=== PATIENT | female | born 1955 | race Caucasian/White ===

== ENCOUNTER → 2018-02-25 08:30 | Outpatient (CLI) | payer OTHER, SELFPAY ==
--- NOTE | 2018-02-25 | DI.MG.S_ITS ---
BILATERAL DIGITAL SCREENING MAMMOGRAM 3D/2D WITH CAD: 02/25/2018 CLINICAL: Family history of breast cancer. Comparison is made to exams dated: 01/29/2017 mammogram, 04/07/2014 mammogram, and 01/15/2011 mammogram - [facility]. There are scattered fibroglandular elements in both breasts. Current study was also evaluated with a Computer Aided Detection (CAD) system. There are 1 cm grouped heterogeneous calcifications in the right breast middle depth lateral region seen best on the craniocaudal view. These are more prominent than on prior exams, possibly due to differences in technique (traditional 2D mammography versus current C-View mammography). No other significant masses, calcifications, or other findings are seen in either breast. IMPRESSION: INCOMPLETE: NEEDS ADDITIONAL IMAGING EVALUATION The 1 cm grouped heterogeneous calcifications in the right breast are indeterminate. Additional views with possible ultrasound are recommended. This exam was interpreted at Station ID: [id number]. NOTE: For mammograms, a report in lay terms will be sent to the patient. Approximately 15% of breast malignancies will not be visualized mammographically. In the management of a palpable breast mass, a negative mammogram must not discourage biopsy of a clinically suspicious lesion. Electronically Signed By: Aakash Mendoza M.D. ecl/:02/25/2018 09:59:26 letter sent: Additional Imaging Needed ACR BI-RADS Category 0: Incomplete [id number]
== END ==
PROVIDERS: PCP Family Medicine; Visit Provider Family Medicine
DX: Z12.31 Encounter for screening mammogram for malignant neoplasm of breast (principal); R92.8 Other abnormal and inconclusive findings on diagnostic imaging of breast
CPT/HCPCS: 77063; 77067

== ENCOUNTER → 2018-03-24 12:26 | Outpatient (CLI) | payer OTHER, SELFPAY ==
--- NOTE | 2018-03-24 | DI.MG.S_ITS ---
UNILATERAL RIGHT DIGITAL DIAGNOSTIC MAMMOGRAM 3D/2D WITH ADDITIONAL VIEWS: 03/24/2018 CLINICAL: Additional evaluation requested from prior study. Comparison is made to exams dated: 02/25/2018 mammogram, 01/29/2017 mammogram, and 04/07/2014 mammogram - [facility]. There are scattered fibroglandular elements in right breast. Previously identified heterogenous calcifications seen on comparison screening mammograms in the lateral right breast persist with additional views, are best seen on the CC view, and extend from central to the nipple at anterior depth laterally to posterior depth, measuring up to 8 cm in anteroposterior diameter. The calcifications are punctate and diffuse. No other significant masses, calcifications, or other findings are seen in the breast. IMPRESSION: PROBABLY BENIGN Diffuse punctate and heterogenous calcifications extending from central to the nipple to the lateral right breast are probably benign, and a follow-up mammogram in 6 months is recommended to demonstrate stability. Patient is advised to return sooner for re-evaluation should she feel anything grow or change. This exam was interpreted at Station ID: [id number]. NOTE: For mammograms, a report in lay terms will be sent to the patient. Approximately 15% of breast malignancies will not be visualized mammographically. In the management of a palpable breast mass, a negative mammogram must not discourage biopsy of a clinically suspicious lesion. Electronically Signed By: Aakash Mendoza M.D. ecl/:03/24/2018 13:46:54 letter sent: Followup Recommended ACR BI-RADS Category 3: Probably benign [id number]
== END ==
PROVIDERS: PCP Family Medicine; Visit Provider Family Medicine
DX: R92.1 Mammographic calcification found on diagnostic imaging of breast (principal)
CPT/HCPCS: 77065; G0279

== ENCOUNTER 2018-09-10 14:42 | Emergency (ER) | payer OTHER, SELFPAY ==
[2018-09-10 14:50] VITALS: BP 181/83; PULSE 78; RESP 17; TEMP 36.9; O2SAT 99
--- NOTE | 2018-09-10 15:06 | DI.CT.S_ITS ---
PROCEDURE: CT HEAD/BRAIN WO CON INDICATIONS: waxing / waning confusion / altered mental status. TECHNIQUE: Noncontrast 4.5 mm thick angled axial sections acquired from the foramen magnum to the vertex, with coronal and sagittal reformats. For radiation dose reduction, the following was used: automated exposure control, adjustment of mA and/or kV according to patient size. COMPARISON: None. FINDINGS: Image quality: Excellent. CSF spaces: Basal cisterns are patent. No extra-axial fluid collections. The ventricles are symmetric in size and shape. Brain: No intracranial bleeds or masses. There is cerebral volume loss for age, with resultant ventricular and sulcal prominence. There are periventricular and deep white matter chronic small vessel ischemic changes. There is intracranial internal carotid artery atherosclerosis. Skull and face: Calvarium and visualized facial bones appear intact, without suspicious lesions. Sinuses: Visualized sinuses and mastoids are clear. IMPRESSION: No acute intracranial abnormality. Dictated by: Mark Esquivel M.D. on 09/10/2018 at 15:34 Approved by: Mark Esquivel M.D. on 09/10/2018 at 15:34
[2018-09-10 15:30] VITALS: BP 135/74; PULSE 68; RESP 16; O2SAT 98
[2018-09-10 15:39] LABS: Add Manual Diff / Slide Review NO; Basophils Absolute Auto 100 /uL (0-100); Eosinophils Absolute Auto 300 /uL (0-450); Eosinophils Percent Auto 2.5 % (2-4); Hematocrit 34.1 % (36-46); Hemoglobin 11.3 g/dL (12.0-16.0); Lymphocytes Absolute Auto 3100 /uL (1100-4500); Lymphocytes Percent Auto 26.8 % (25-40); Mean Corpuscular HGB Conc 33.1 % (30-36); Mean Corpuscular Hemoglobin 27.5 PG (26-34); Mean Corpuscular Volume 83.1 fL (80-100); Monocytes Absolute Auto 700 /uL (0-900); Monocytes Percent Auto 5.9 % (3-14); Neutrophils Absolute Auto 7400 /uL (1500-7000); Neutrophils Percent Auto 63.8 % (50-75); Platelet Count 387 X10^3/uL (150-400); Red Cell Distribution Width 14.7 % (11.6-14.8); White Blood Cell Count 11.6 X10^3/uL (4.5-11.0)
[2018-09-10 15:46] LABS: INR 0.9 (0.9-1.3); Prothrombin Time 10.4 SECONDS (10.1-12.7)
[2018-09-10 15:49] LABS: PTT Partial Thromboplastin Tim 31 SECONDS (26.4-36.2)
[2018-09-10 15:53] LABS: BUN Creatinine Ratio 17.8 (6-22); Blood Urea Nitrogen 16 mg/dL (7-17); Calcium 10.4 mg/dL (8.4-10.2); Carbon Dioxide 29 mmol/L (22-32); Chloride 96 mmol/L (98-107); Estimated Glomerular Filt Rate > 60.0 mL/min (>60); Glucose 135 mg/dL (80-110); HEMOLYSIS < 15 (0-50); Potassium 3.2 mmol/L (3.4-5.1); Sodium 139 mmol/L (137-145)
[2018-09-10 16:30] VITALS: BP 133/64; PULSE 69; RESP 16; O2SAT 98
[2018-09-10 16:45] LABS: Urine Amphetamines Negative (Negative); Urine Barbiturates Negative (Negative); Urine Benzodiazepines Negative (Negative); Urine Cocaine Negative (Negative); Urine MDMA Negative (Negative); Urine Methadone Negative (Negative); Urine Methamphetamines Negative (Negative); Urine Morphine/Opi cutoff 2000 Negative (Negative); Urine Oxycodone Negative (Negative); Urine Phencyclidine Negative (Negative); Urine Tetrahydrocannabinol Negative (Negative); Urine Tricyclic Antidepressant Negative (Negative)
--- NOTE | 2018-09-10 17:18 | ED.NEUROSD ---
HPI - Neuro Symptoms/Deficit General Chief Complaint: Neuro Symptoms/Deficit Stated Complaint: Headache since last night, high bp, brain fog Time Seen by Provider: 09/10/18 16:48 Source: patient and family ( ) Mode of arrival: ambulatory Limitations: no limitations History of Present Illness HPI Narrative: this is a 63-year-old female comes to the emergency department with complaint of altered mental status. Patient states that she had a brain fog. She states she started have a little bit of a headache last night which he states was no big deal. About 10:00 a.m. 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 About a 0.5 hr into spending time in a classroom she realized that was not the location she was supposed to be either even after looking at her schedule sober times she did not recognize that she was in the wrong place. She states that she felt sort of weird little bit dizzy. She texted her to let him know that she felt dizzy and sort of confused. He asked if she wanted him to come get her and she did not. She checked her blood sugar lunch and was normal. She was later working with students and reading questions on a paper she felt that she had no problem reading the questions but when it came time to answer questions about them she did feel like she could answer them properly, she states that this did not answer them and she verbalized their answering them correctly but she felt she could not have reached the conclusion. She denies any vision changes, she denies any chest pain, no shortness of breath no nausea no vomiting no diarrhea or constipation. She has not had any urinary symptoms. She has not had similar symptoms in the past. Patient has not had any numbness, weakness tingling or other lateralizing symptoms. She has not noticed she has had difficulties with speech and no one around her has noticed this. Her states she is acting normally at this time. She is on metformin for diabetes, she takes medication for hypertension as well as mood disorder. She denies any tobacco, alcohol or illicit On Anticoagulants: No (basa) Related Data Home Medications Medication Instructions Recorded Confirmed Cinnamon 1 cap PO QAM 09/10/18 09/10/18 amlodipine 10 mg PO DAILY 09/10/18 09/10/18 aspirin 81 mg PO QPM 09/10/18 09/10/18 citalopram 40 mg PO QPM 09/10/18 09/10/18 levothyroxine 100 mcg PO QAM 09/10/18 09/10/18 metformin 1,000 mg PO BID 09/10/18 09/10/18 metoprolol tartrate 50 mg PO BID 09/10/18 09/10/18 multivitamin 1 tab PO QPM 09/10/18 09/10/18 omeprazole 20 mg PO QPM 09/10/18 09/10/18 triamterene-hydrochlorothiazid 2 cap PO DAILY 09/10/18 09/10/18 venlafaxine 150 mg PO QPM 09/10/18 09/10/18 Allergies Allergy/AdvReac Type Severity Reaction Status Date / Time Sulfa (Sulfonamide Allergy Severe Vomiting, Verified 09/10/18 18:02 Antibiotics) Rash, [SULFA (SULFONAMIDE Pruritus, ANTIBIOTICS)] Fever povidone-iodine AdvReac Mild Contact Verified 09/10/18 18:02 [From Betadine] allergy, Swelling soap [From Betadine] AdvReac Mild Contact Verified 09/10/18 18:02 allergy, Swelling Review of Systems Review of Systems ROS Unobtainable: All systems reviewed & are unremarkable except as noted in HPI and below Constitutional Denies body ache(s), Denies chills, Denies fatigue, Denies fever(s), Denies frequent falls, Reports headache(s), Denies lethargy, Denies malaise and Denies weakness Eyes Denies blurry vision, Denies change in vision and Denies loss of vision ENT Ears, Nose, Mouth, and Throat: Denies abnormal hearing, Reports dizziness, Reports headache(s) and Denies nasal congestion Cardiovascular Denies chest pain, Denies diaphoresis, Denies syncope, Denies rapid heart rate, Denies edema, Denies irregular heart rhythm, Denies lightheadedness, Denies palpitations, Denies dyspnea, Denies dyspnea on exertion and Denies orthopnea Respiratory Denies change in phlegm color, Denies chest congestion, Denies cough, Denies dyspnea, Denies dyspnea on exertion and Denies wheezing Gastrointestinal Gastrointestinal: Denies abdominal pain, Denies change in bowel habits, Denies diarrhea, Denies nausea and Denies vomiting Genitourinary Denies hematuria, Denies dysuria, Denies flank pain, Denies urinary incontinence, Denies urinary hesitancy and Denies urinary urgency Musculoskeletal Denies abnormal gait, Denies muscle weakness, Denies numbness and Denies tingling Integumentary/Breasts Denies rash Neurologic Denies abnormal hearing, Denies abnormal movements, Denies abnormal speech, Denies abnormal gait, Denies behavioral changes, Reports confusion, Reports dizziness, Denies syncope, Denies frequent falls, Reports headache(s), Denies lack of coordination, Denies focal weakness, Denies loss of vision, Denies numbness, Denies sensory deficit, Denies tingling and Denies weakness Psychiatric Denies behavioral changes and Reports confusion Endocrine Denies fatigue and Denies palpitations Allergic/Immunologic Denies wheezing PFSH Medical History Diabetes (Chronic) Hypertension (Chronic) Mood disorder (Chronic) Surgical History Hx of cholecystectomy (Chronic) Social History marital status: household members: spouse lives independently: Yes occupational status: employed Smoking Status: Never smoker alcohol intake: never substance use type: does not use Social History marital status: household members: spouse lives independently: Yes occupational status: employed Smoking Status: Never smoker alcohol intake: never substance use type: does not use Exam Narrative Exam Narrative: GEN: well nourished, well appearing [ female], alert and oriented x 3, patient appears to be in no acute distress. HEENT: Atraumatic, pupils are equal round reactive to light, extraocular movements are intact, nares are clear, TMs are clear with no fluid, there is no conjunctival pallor. Throat is clear without any exudates, erythema, tonsillar enlargement or uvular deviation, no facial droop HEART: Regular rate and rhythm without murmur, clicks, rubs. No carotid bruits, pulses are equal in upper and lower extremities LUNGS:Lungs clear to auscultation, no wheezes, rales, crackles, chest moves symmetrically ABD:bowel sounds normal, soft, non-tender, no guarding, rebound, rigidity, no masses noted, no hepatosplenomegaly :No CVA tenderness MSCL: Non-tender, no muscle atrophy, muscles strength 5/5 upper and lower extremities, full range of motion, normal gait NEURO:CN 2-12 intact, sensation normal, reflexes 2/4 upper and lower extremities. finger nose finger test normal, heel sabillon test normal Initial Vital Signs Initial Vital Signs: Vital Signs Temperature 98.4 F 09/10/18 14:50 Pulse Rate 78 09/10/18 14:50 Respiratory Rate 17 09/10/18 14:50 Blood Pressure 181/83 H 09/10/18 14:50 Pulse Oximetry 99 09/10/18 14:50 Scores NIH Stroke Scale Level of Conciousness: Alert, keenly responsive Ask month/age: Answers both questions correctly. Open/close eyes, close hand: Performs both tasks correctly Best gaze horizontal: Normal Visual woo: No visual loss Facial palsy: Normal symetrical movement Left arm drift: No drift for full 10 sec Right arm drift: No drift for full 10 sec Left leg drift: No drift for full 10 sec Right leg drift: No drift for full 10 sec Limb ataxia: Absent Sensory on face/arms/legs: Normal, no sensory loss Best language: No aphasia, normal Dysarthria: Normal Extinction or inattention: No abnormality Total NIH Stroke scale score: 0 Course Orders Ordered: ED Orders 09/10/18 15:06 CT head/brain wo con Stat EKG-12 Lead Stat 09/10/18 15:30 Basic Metabolic Panel Stat Complete Blood Count AUTO DIFF Stat Partial Thromboplastin Time Stat Prothrombin Time INR Stat 09/10/18 16:35 Urine Drug Screen, Rapid Stat Discontinued Medications Aspirin (Aspirin Chew) 324 mg PO NOW ONE Stop: 09/10/18 17:58 Last Admin: 09/10/18 18:30 Dose: 324 mg Potassium Chloride (Potassium Chloride) 40 meq PO NOW ONE Stop: 09/10/18 17:22 Last Admin: 09/10/18 17:50 Dose: 40 meq Vital Signs - 8 hr 09/10/18 14:50 09/10/18 15:30 09/10/18 16:30 Temperature 98.4 F Pulse Rate 78 68 69 Respiratory Rate 17 16 16 Blood Pressure 181/83 H Blood Pressure [Left Arm] 135/74 133/64 Pulse Oximetry 99 98 98 09/10/18 18:16 09/10/18 18:55 Temperature 98.3 F Pulse Rate 61 69 Respiratory Rate 13 19 Blood Pressure Blood Pressure [Left Arm] 143/66 H 150/80 H Pulse Oximetry 97 96 MDM - Neuro Symptoms/Deficit Lab Data Attestation: I reviewed the patient's lab results. Result diagrams: 09/10/18 15:30 09/10/18 15:30 Lab Results 09/10/18 09/10/18 09/10/18 Range/Units 15:30 15:30 15:30 WBC 11.6 H (4.5-11.0) X10^3/uL RBC 4.10 (4.0-5.2) X10^6/uL Hgb 11.3 L (12.0-16.0) g/dL Hct 34.1 L (36-46) % MCV 83.1 (80-100) fL MCH 27.5 (26-34) PG MCHC 33.1 (30-36) % RDW 14.7 (11.6-14.8) % Plt Count 387 (150-400) X10^3/uL Neut % (Auto) 63.8 (50-75) % Lymph % (Auto) 26.8 (25-40) % [place] % (Auto) 5.9 (3-14) % Eos % (Auto) 2.5 (2-4) % Baso % (Auto) 1.0 (0-2) % Neut # (Auto) 7400 H (8838-2579) /uL Lymph # (Auto) 3100 (1776-4042) /uL [place] # (Auto) 700 (0-900) /uL Eos # (Auto) 300 (0-450) /uL Baso # (Auto) 100 (0-100) /uL PT 10.4 (10.1-12.7) SECONDS INR 0.9 (0.9-1.3) APTT 31 (26.4-36.2) SECONDS Sodium 139 (137-145) mmol/L Potassium 3.2 L (3.4-5.1) mmol/L Chloride 96 L (98-107) mmol/L Carbon Dioxide 29 (22-32) mmol/L BUN 16 (7-17) mg/dL Creatinine 0.90 (0.52-1.04) mg/dL Estimated GFR > 60.0 (>60) mL/min BUN/Creatinine Ratio 17.8 (6-22) Glucose 135 H (80-110) mg/dL Calcium 10.4 H (8.4-10.2) mg/dL Urine Opiates Screen (Negative) Ur Oxycodone Screen (Negative) Urine Methadone Screen (Negative) Ur Barbiturates Screen (Negative) U Tricyclic Antidepress (Negative) Ur Phencyclidine Scrn (Negative) Ur Amphetamines Screen (Negative) U Methamphetamines Scrn (Negative) Ur MDMA Scrn (Ecstasy) (Negative) U Benzodiazepines Scrn (Negative) Urine Cocaine Screen (Negative) U Marijuana (THC) Screen (Negative) 09/10/18 Range/Units 16:35 WBC (4.5-11.0) X10^3/uL RBC (4.0-5.2) X10^6/uL Hgb (12.0-16.0) g/dL Hct (36-46) % MCV (80-100) fL MCH (26-34) PG MCHC (30-36) % RDW (11.6-14.8) % Plt Count (150-400) X10^3/uL Neut % (Auto) (50-75) % Lymph % (Auto) (25-40) % [place] % (Auto) (3-14) % Eos % (Auto) (2-4) % Baso % (Auto) (0-2) % Neut # (Auto) (6688-3105) /uL Lymph # (Auto) (1480-4730) /uL [place] # (Auto) (0-900) /uL Eos # (Auto) (0-450) /uL Baso # (Auto) (0-100) /uL PT (10.1-12.7) SECONDS INR (0.9-1.3) APTT (26.4-36.2) SECONDS Sodium (137-145) mmol/L Potassium (3.4-5.1) mmol/L Chloride (98-107) mmol/L Carbon Dioxide (22-32) mmol/L BUN (7-17) mg/dL Creatinine (0.52-1.04) mg/dL Estimated GFR (>60) mL/min BUN/Creatinine Ratio (6-22) Glucose (80-110) mg/dL Calcium (8.4-10.2) mg/dL Urine Opiates Screen Negative (Negative) Ur Oxycodone Screen Negative (Negative) Urine Methadone Screen Negative (Negative) Ur Barbiturates Screen Negative (Negative) U Tricyclic Antidepress Negative (Negative) Ur Phencyclidine Scrn Negative (Negative) Ur Amphetamines Screen Negative (Negative) U Methamphetamines Scrn Negative (Negative) Ur MDMA Scrn (Ecstasy) Negative (Negative) U Benzodiazepines Scrn Negative (Negative) Urine Cocaine Screen Negative (Negative) U Marijuana (THC) Screen Negative (Negative) Urine Dip Bedside Urine Glucose Negative Bedside Urine Bilirubin - Negative Bedside Urine Ketone - Negative Urine Specific [place] 1.015 Bedside Urine Occult Blood - Negative Bedside Urine pH 6.0 Bedside Urine Protein - Negative Bedside Urine Urobilinogen - Negative Bedside Urine Nitrite - Negative Bedside Urine Leukocytes + [address] scan - head: Radiologist's impression: Sandy Clark 63 F [address] [place] [address] CT Scan Report Signed Patient: Sandy Clark GMR#: [id number] : 5Acct:[id number] Age/Sex: 63 / FDate of Service: 09/10/18 Loc: ED Accession Number: [id number] Procedure: CT head/brain wo con Ordering Provider: Tori Nicholas D.O. PROCEDURE: CT HEAD/BRAIN WO CON INDICATIONS: waxing / waning confusion / altered mental status. TECHNIQUE: Noncontrast 4.5 mm thick angled axial sections acquired from the foramen magnum to the vertex, with coronal and sagittal reformats. For radiation dose reduction, the following was used: automated exposure control, adjustment of mA and/or kV according to patient size. COMPARISON: None. FINDINGS: Image quality: Excellent. CSF spaces: Basal cisterns are patent. No extra-axial fluid collections. The ventricles are symmetric in size and shape. Brain: No intracranial bleeds or masses. There is cerebral volume loss for age, with resultant ventricular and sulcal prominence. There are periventricular and deep white matter chronic small vessel ischemic changes. There is intracranial internal carotid artery atherosclerosis. Skull and face: Calvarium and visualized facial bones appear intact, without suspicious lesions. Sinuses: Visualized sinuses and mastoids are clear. IMPRESSION: No acute intracranial abnormality. Dictated by: Mark Esquivel M.D. on 09/10/2018 at 15:34 Approved by: Mark Esquivel M.D. on 09/10/2018 at 15:34 ECG Data Attestation: I personally reviewed and interpreted this ECG as follows: Interpretation: sinus rhythm with occasional PVCs, rate of 65 P are 176 QRS of 110 and QTC of 445. nonspecific T-wave change. MDM Narrative Medical decision making narrative: Patient had to have an acute alteration in her mental status that sort of wax and wane and has resolved since. Patient's NIH is 0, her symptoms are not to atypical TIA. Patient does have risk factors. Discussed with her primary care doctor nelida. Patient is reluctant to be admitted for observation and was offered to follow up on Thursday but continue an aspirin [address] Zavala is on-call weekend and states that if she has any recurrent symptoms to contact him immediately and they could directly admit her. Patient is comfortable with this plan we did discuss if she has any major changes such as facial droop, new weakness difficulty with movement or other alterations in her mental status would likely be appropriate for her to come directly to the ER 1st. She does have a slight decrease in her potassium although this seems unlikely to be the cause of her symptomatology. Urine shows leukocyte esterase but no nitrates so unlikely to be UTI causing altered mental status. Discharge Plan Departure Patient Disposition: Home Clinical Impression: Acute alteration in mental status, Acute hypokalemia Discharge Date/Time: 09/10/18 19:06 Interventions: ED Discharge Assessment Last Done: 09/10/18 18:56 Instructions: DI for Altered Mental Status Activity Restrictions/Additional Instructions: Follow-up with Dr. Zavala on Thursday, call for an appointment. Dr. Zavala is on-call this if you are having symptoms like he had at work today called Dr. Zavala. Continue home medications as prescribed. Take an aspirin at 324 mg once daily, Until cleared by Dr. Zavala. Return to the emergency department for fevers greater than 100.4, sudden severe headaches, new vision changes new weakness, numbness, inability to lift or move her extremity, new chest pain or shortness of breath, difficulty with speech or other new or concerning symptoms. Prescriptions: No Action metformin 500 mg tablet 1,000 mg PO BID RF: 0 venlafaxine 150 mg capsule,extended release 24hr 150 mg PO QPM RF: 0 triamterene-hydrochlorothiazid 37.5-25 mg capsule 2 cap PO DAILY RF: 0 levothyroxine 100 mcg tablet 100 mcg PO QAM RF: 0 citalopram 20 mg tablet 40 mg PO QPM RF: 0 amlodipine 10 mg tablet 10 mg PO DAILY RF: 0 metoprolol tartrate 50 mg tablet 50 mg PO BID RF: 0 omeprazole 20 mg capsule,delayed release(DR/EC) 20 mg PO QPM RF: 0 multivitamin Tablet 1 tab PO QPM RF: 0 aspirin 81 mg Tablet,Delayed Release (Dr/Ec) 81 mg PO QPM RF: 0 Cinnamon 1 cap PO QAM RF: 0 Referrals: Uli Zavala MD [Primary Care Provider] -
[2018-09-10] MEDS: POTASSIUM CHLORIDE 20 MEQ/15 ML UDC 40 MEQ PO (17:50)
[2018-09-10 18:16] VITALS: BP 143/66; PULSE 61; RESP 13; O2SAT 97
[2018-09-10] MEDS: ASPIRIN 81 MG TAB 324 MG PO (18:30)
[2018-09-10 18:55] VITALS: BP 150/80; PULSE 69; RESP 19; TEMP 36.8; O2SAT 96
== END 2018-09-10 19:06 | disposition home or self-care (01) ==
PROVIDERS: Emergency Provider Emergency Medicine; PCP Family Medicine
DX: R41.82 Altered mental status, unspecified (principal); E87.6 Hypokalemia
CPT/HCPCS: 36591; 70450; 80048; 80305; 81003; 85025; 85610; 85730; 93005; 99283; 99285

== ENCOUNTER 2020-09-27 17:40 | Emergency (ER) | payer MEDICARE, OTHER, SELFPAY ==
[2020-09-27 17:49] VITALS: BP 169/81; PULSE 73; RESP 14; TEMP 36.6; O2SAT 98; BMI 40.2
--- NOTE | 2020-09-27 18:31 | ED_ITS ---
HPI - General Adult General Chief complaint: Diabetic Problem Stated complaint: very low blood sugar Time Seen by Provider: 09/27/20 18:13 Source: patient Mode of arrival: Wheelchair Limitations: no limitations History of Present Illness HPI narrative: This is a 65-year-old female comes emergency department with concern for hypoglycemia. Patient states she was at home today, she had skipped her normal 2:30 p.m. snack. She went for a walk with her which is a somewhat new activity. She got home was sitting on the couch and started feeling quite shaky, she was little bit confused. and the patient checked her sugar and it was 49. He gave her a large 16 oz sweet tea. They contacted the nurse help line and were recommended to call 911. Patient was improving they elected to drive here. Patient was improved in felt like she was really back to normal on arrival here at the hospital. Her glucose here was 79. She states she continues to feel much better. Patient was started on glipizide extended release yesterday by her primary care physician because her hemoglobin A1c was 8. She states she has recently improved her diet because she had seen her blood results prior to her office visit so she has also been eating healthier than she was prior. She takes metformin as well for her diabetic medications. Patient denies any other issues today. No fevers, no cold cough or congestion. No chest pain or shortness of breath. Denies any nausea, no vomiting no other GI or urinary symptoms. She denies any frequency dysuria sense of urgency. She is accompanied by her . Related Data Home Medications Medication Instructions Recorded Confirmed Cinnamon 1 cap PO QAM 09/10/18 09/14/19 amlodipine 10 mg PO DAILY 09/10/18 09/14/19 citalopram 40 mg PO QPM 09/10/18 09/14/19 levothyroxine 100 mcg PO QAM 09/10/18 09/14/19 metformin 1,000 mg PO BID 09/10/18 04/11/20 metoprolol tartrate 50 mg PO BID 09/10/18 04/11/20 multivitamin 1 tab PO QPM 09/10/18 04/11/20 omeprazole 20 mg PO QPM 09/10/18 04/11/20 triamterene-hydrochlorothiazid 2 cap PO DAILY 09/10/18 04/11/20 venlafaxine 150 mg PO QPM 09/10/18 04/11/20 Respironics Dreamstation BIPAP #1 ea 09/14/18 04/11/20 aspirin 325 mg tablet 325 mg PO DAILY 09/14/18 09/14/19 Allergies Allergy/AdvReac Type Severity Reaction Status Date / Time Sulfa (Sulfonamide Allergy Severe Vomiting, Verified 09/27/20 17:49 Antibiotics) Rash, [SULFA (SULFONAMIDE Pruritus, ANTIBIOTICS)] Fever povidone-iodine AdvReac Mild Contact Verified 09/27/20 17:49 [From Betadine] allergy, Swelling soap [From Betadine] AdvReac Mild Contact Verified 09/27/20 17:49 allergy, Swelling Review of Systems Review of Systems ROS Unobtainable: All systems reviewed & are unremarkable except as noted in HPI and below Patient History Medical History Diabetes Excessive daytime sleepiness Hypertension Insomnia Mood disorder Morbid obesity with body mass index of 40.0-49.9 Obstructive sleep apnea of adult Snoring Surgical History Hx of cholecystectomy Social History marital status: details: mitchell Khan, lives in [place] household members: spouse lives independently: Yes caregiver/support person: No housing: house occupational status: employed Smoking Status: Never smoker alcohol intake: never substance use type: does not use Smoking Status: Never smoker alcohol intake frequency: holidays/special occasions only Substance Use Type: does not use Exam Narrative Exam Narrative: GENERAL: Alert and oriented x three, well-nourished female in mild distress. Patient is eating a snack currently. HEENT: Head normocephalic, atraumatic, EOMI, pupils reactive, face symmetric, moist mucous membranes NECK: Supple, full range of motion CARDIOVASCULAR: Regular rate and rhythm without murmurs, rubs or gallops. RESPIRATORY: Breath sounds equal bilaterally, no wheezes rales or rhonchi. ABDOMEN: Soft, nontender. Normoactive bowel sounds all 4 quadrants. No guarding or rebound, rigidity, no mass : No CVA tenderness EXTREMITIES: Normal range of motion, no clubbing or edema. Neurovascularly intact NEUROLOGICAL: Cranial nerves II through XII grossly intact. Moving all extremities SKIN: Warm, dry, no petechiae, no rashes or lesions. Initial Vital Signs Initial Vital Signs: Vital Signs Temperature 97.9 F 09/27/20 17:49 Pulse Rate 73 09/27/20 17:49 Respiratory Rate 14 09/27/20 17:49 Blood Pressure 169/81 H 09/27/20 17:49 Pulse Oximetry 98 09/27/20 17:49 Scores GCS Jackie coma scale eye opening: Spontaneous Jackie coma scale verbal response: Orientated Jackie coma scale motor response: Obey commands Jackie coma scale total score: 15 Course Vital Signs Vital signs: Vital Signs - 8 hr 09/27/20 19:04 Pulse Rate 70 Respiratory Rate 18 Blood Pressure 136/65 Pulse Oximetry 96 Medical Decision Making Lab Data Labs: Point of Care Testing Glucose POC 114 Point of care testing: Point of Care Testing Glucose POC 114 MDM Narrative Medical decision making narrative: This is a 65-year-old female with hypoglycemia after starting a 2nd anti diabetic medication. Likely this in conjunction with missing her regular afternoon snack, physical activity as well as recently improving her diet cause her to have a episode. Patient defers any labs or further evaluation at this time. She is feeling much better. Repeat glucose was performed and hour after arrival and is 114. Patient politely defers additional workup including labs or urine. She was encouraged to contact her pcp before taking her new medication in the morning. They may wish to adjust doses. Discharge Plan Departure Patient Disposition: Home Clinical Impression: Hypoglycemia Instructions: DI for Hypoglycemia Activity Restrictions/Additional Instructions: Call to follow up with your physician tomorrow. Discuss with your physician or other office staff if you should continue glipizide extended release or adjust the dosage of her medication. Please return to the emergency department for fevers, recurrent episodes of hypoglycemia, lightheadedness, altered mental status, passing out, new chest pain, shortness of breath, persistent nausea vomiting, diaphoresis or sweating, diarrhea or other new or concerning symptoms. Prescriptions: No Action metformin 500 mg tablet 1,000 mg PO BID RF: 0 venlafaxine 150 mg capsule,extended release 24hr 150 mg PO QPM RF: 0 triamterene-hydrochlorothiazid 37.5-25 mg capsule 2 cap PO DAILY RF: 0 levothyroxine 100 mcg tablet 100 mcg PO QAM RF: 0 citalopram 20 mg tablet 40 mg PO QPM RF: 0 amlodipine 10 mg tablet 10 mg PO DAILY RF: 0 metoprolol tartrate 50 mg tablet 50 mg PO BID RF: 0 omeprazole 20 mg capsule,delayed release(DR/EC) 20 mg PO QPM RF: 0 multivitamin Tablet 1 tab PO QPM RF: 0 Cinnamon 1 cap PO QAM RF: 0 aspirin 325 mg tablet 325 mg PO DAILY RF: 0 (DME) RespirKyields Dreamstation BIPAP Qty: 1 RF: 0 Referrals: Dean Caro MD [Physician] -
[2020-09-27 19:04] VITALS: BP 136/65; PULSE 70; RESP 18; O2SAT 96
== END 2020-09-27 19:07 | disposition home or self-care (01) ==
PROVIDERS: Emergency Provider Emergency Medicine
DX: E16.2 Hypoglycemia, unspecified (principal)
CPT/HCPCS: 82962; 99281; 99283

== ENCOUNTER → 2021-01-22 10:27 | Outpatient (CLI) | payer MEDICARE, OTHER, SELFPAY ==
--- NOTE | 2021-01-22 | DI.RAD.S_ITS ---
PROCEDURE: XR DEXA AXIAL SKELETON INDICATIONS: Asymptomatic menopausal state COMPARISON: None. FINDINGS: This blank DEXA report has been sent in error by the PACS system. The correct and complete report will be forthcoming in 1-2 days. Thank you for your patience and understanding. Dictated by: Leanna Ohara MD, PhD on 01/22/2021 at 12:18 Approved by: Leanna Ohara MD, PhD on 01/22/2021 at 12:18
== END ==
PROVIDERS: PCP Family Medicine; Referring Provider Family Medicine; Visit Provider Family Medicine
DX: M85.851 Other specified disorders of bone density and structure, right thigh (principal); Z78.0 Asymptomatic menopausal state; E11.9 Type 2 diabetes mellitus without complications
CPT/HCPCS: 77080

== ENCOUNTER → 2021-03-07 11:17 | Outpatient (CLI) | payer MEDICARE, OTHER, SELFPAY ==
--- NOTE | 2021-03-07 | DI.MG.S_ITS ---
BILATERAL DIGITAL SCREENING MAMMOGRAM 3D/2D WITH CAD: 03/07/2021 CLINICAL: Routine screening. Family history of breast cancer. Comparison is made to exams dated: 03/24/2018 mammogram, 02/25/2018 mammogram, and 01/29/2017 mammogram - [facility]. There are scattered fibroglandular elements in both breasts. Current study was also evaluated with a Computer Aided Detection (CAD) system. There is an oval equal density focal asymmetry with an indistinct margin in the right breast central to the nipple in the retroareolar region. No other significant masses, calcifications, or other findings are seen in either breast. IMPRESSION: INCOMPLETE: NEEDS ADDITIONAL IMAGING EVALUATION The oval equal density focal asymmetry in the right breast is indeterminate. Mediolateral and spot compression views as well as additional views with possible ultrasound are recommended. This exam was interpreted at Station ID: [id number]. NOTE: For mammograms, a report in lay terms will be sent to the patient. Approximately 15% of breast malignancies will not be visualized mammographically. In the management of a palpable breast mass, a negative mammogram must not discourage biopsy of a clinically suspicious lesion. Electronically Signed By: Kelechi castellon/claudette:03/07/2021 12:32:05 letter sent: Additional Imaging Needed ACR BI-RADS Category 0: Incomplete [id number]
== END ==
PROVIDERS: PCP Family Medicine; Referring Provider Family Medicine; Visit Provider Family Medicine
DX: Z12.31 Encounter for screening mammogram for malignant neoplasm of breast (principal); Z80.3 Family history of malignant neoplasm of breast
CPT/HCPCS: 77063; 77067

== ENCOUNTER → 2021-03-26 13:30 | Outpatient (CLI) | payer MEDICARE, OTHER, SELFPAY ==
--- NOTE | 2021-03-26 | DI.MG.S_ITS ---
UNILATERAL RIGHT DIGITAL DIAGNOSTIC MAMMOGRAM 3D/2D WITH ADDITIONAL VIEWS: 03/26/2021 CLINICAL: Additional evaluation requested from prior study. Comparison is made to exams dated: 03/07/2021 mammogram, 03/24/2018 mammogram, and 02/25/2018 mammogram - [facility]. There are scattered fibroglandular elements in right breast. There is a 1.6 cm oval equal density focal asymmetry with an indistinct margin in the right breast at 7 o'clock anterior depth. No other significant masses or calcifications are seen in the breast. IMPRESSION: INCOMPLETE: NEEDS ADDITIONAL IMAGING EVALUATION The 1.6 cm oval equal density focal asymmetry in the right breast is indeterminate. An ultrasound is recommended. Ultrasound will be performed immediately following the current exam. This exam was interpreted at Station ID: [id number]. NOTE: For mammograms, a report in lay terms will be sent to the patient. Approximately 15% of breast malignancies will not be visualized mammographically. In the management of a palpable breast mass, a negative mammogram must not discourage biopsy of a clinically suspicious lesion. Electronically Signed By: Kelechi Caban M.D. [email or web address]/:03/26/2021 14:07:16 ACR BI-RADS Category 0: Incomplete [id number]
--- NOTE | 2021-03-26 | DI.US.S_ITS ---
LIMITED ULTRASOUND OF RIGHT BREAST: 03/26/2021 CLINICAL: Patient returns today to evaluate a focal asymmetry in the right breast. Comparison is made to exams dated: 03/26/2021 mammogram, 03/07/2021 mammogram, 03/24/2018 mammogram, 02/25/2018 mammogram, 01/29/2017 mammogram, and 04/07/2014 mammogram - [facility]. Color flow and real-time ultrasound of the right breast 6-8 o'clock region were performed on the areas of interest. There is a benign 0.4 cm x 0.3 cm x 0.3 cm oval cyst in the right breast at 7 o'clock anterior depth 1.5 cm from the nipple. This oval cyst is anechoic with a well-defined boundary and posterior acoustic enhancement. This likely correlates with mammography findings. Color flow imaging demonstrates that there is no vascularity present. No other discrete mass identified in the area scanned. IMPRESSION: BENIGN There is no sonographic evidence of malignancy. The 0.4 cm x 0.3 cm x 0.3 cm oval cyst in the right breast is consistent with a simple cyst and is benign. A 1 year screening mammogram is recommended. This exam was interpreted at Station ID: [id number]. Electronically Signed By: Kelechi Caban M.D. [email or web address]/:03/26/2021 15:13:02 letter sent: Normal Exam Ultrasound BI-RADS: 2 Benign
== END ==
PROVIDERS: PCP Family Medicine; Referring Provider Family Medicine; Visit Provider Family Medicine
DX: R92.8 Other abnormal and inconclusive findings on diagnostic imaging of breast (principal); N60.01 Solitary cyst of right breast
CPT/HCPCS: 76642; 77065; G0279

== ENCOUNTER 2021-08-19 13:30 | Emergency (ER) | payer MEDICARE, OTHER, SELFPAY ==
[2021-08-19 13:53] VITALS: BP 139/63; PULSE 69; RESP 18; TEMP 36.6; O2SAT 97
[2021-08-19 14:41] LABS: Add Manual Diff / Slide Review NO; Basophils Absolute Auto 100 /uL (0-100); Basophils Percent Auto 0.6 % (0-2); Eosinophils Absolute Auto 500 /uL (0-450); Eosinophils Percent Auto 3.6 % (2-4); Hematocrit 38.6 % (36-46); Hemoglobin 12.4 g/dL (12.0-16.0); Lymphocytes Absolute Auto 3000 /uL (1100-4500); Lymphocytes Percent Auto 22.4 % (25-40); Mean Corpuscular HGB Conc 32.2 % (30-36); Mean Corpuscular Hemoglobin 26.6 PG (26-34); Mean Corpuscular Volume 82.5 fL (80-100); Monocytes Absolute Auto 700 /uL (0-900); Monocytes Percent Auto 5.5 % (3-14); Neutrophils Absolute Auto 9000 /uL (1500-7000); Neutrophils Percent Auto 67.9 % (50-75); Platelet Count 321 X10^3/uL (150-400); Red Blood Cell Count 4.68 X10^6/uL (4.0-5.2); Red Cell Distribution Width 15.7 % (11.6-14.8); White Blood Cell Count 13.3 X10^3/uL (4.5-11.0)
--- NOTE | 2021-08-19 14:43 | DI.CT.S_ITS ---
PROCEDURE: CT ABDOMEN PELVIS W CON INDICATIONS: LLq, LUQ pain TECHNIQUE: After the administration of intravenous contrast, axial sections acquired from the lung bases to the pubic symphysis. Coronal and sagittal reformats were performed. For radiation dose reduction, the following was used: automated exposure control, adjustment of mA and/or kV according to patient size. COMPARISON: None. FINDINGS: Image quality: Excellent. Lung bases: Unremarkable. Heart: No significant findings. ABDOMEN: Liver: Mild, diffuse fatty infiltration of the liver. Gallbladder: Surgically absent Biliary ducts: Unremarkable. Pancreas: Unremarkable. Spleen: Unremarkable. Adrenal Glands: Unremarkable. Kidneys and Ureters: Unremarkable. Stomach and Bowel: Stomach, small bowel loops, and colon are unremarkable. Mild inflammatory changes surrounding central locule of fat noted at the anti mesenteric margin of the descending colon compatible with epiploic appendagitis. Appendix is not identified, however no inflammatory changes or free fluid are noted adjacent to the cecum. Peritoneum: No abnormal intraperitoneal fluid. No free air. Ventral Wall: Small right paramedian, fat containing supraumbilical ventral hernia. Abdominal Nodes: No retroperitoneal or mesenteric adenopathy by size criteria. Vessels: Aorta and inferior vena cava are normal in size. PELVIS: Pelvic Organs: Unremarkable. Bladder: Unremarkable. Pelvic Nodes: No enlarged lymph nodes. Miscellaneous: No hernias are seen. Bones: Spine degenerative disc disease and facet arthropathy. IMPRESSION: 1. Left colon epiploic appendagitis. 2. Hepatic steatosis. 3. Right paramedian, fat containing, supraumbilical ventral hernia. Dictated by: Leanna Ohara MD, PhD on 08/19/2021 at 15:58 Approved by: Leanna Ohara MD, PhD on 08/19/2021 at 16:02
[2021-08-19 15:06] LABS: Alanine Aminotransferase 52 IU/L (<35); Albumin 4.5 g/dL (3.5-5.0); Albumin Globulin Ratio 1.3 (1.0-2.8); Alkaline Phosphatase 167 U/L (38-126); Aspartate Aminotransferase 48 IU/L (14-36); BUN Creatinine Ratio 19.1 (6-22); Bilirubin Total 0.4 mg/dL (0.2-1.3); Blood Urea Nitrogen 17 mg/dL (7-17); Calcium 10.2 mg/dL (8.4-10.2); Carbon Dioxide 29 mmol/L (22-32); Chloride 99 mmol/L (98-107); Estimated Glomerular Filt Rate > 60.0 mL/min (>60); Globulin 3.4 g/dL (1.7-4.1); Glucose 134 mg/dL (80-110); HEMOLYSIS < 15 (0-50); Lipase 118 U/L (23-300); Potassium 3.3 mmol/L (3.4-5.1); Sodium 138 mmol/L (137-145); Total Protein 7.9 g/dL (6.3-8.2)
--- NOTE | 2021-08-19 15:18 | ED_ITS ---
HPI - Abdominal Pain <Farzaneh Mayberry PA-C - Last Filed: 08/19/21 20:51> General Chief Complaint: Abdominal Pain Stated Complaint: Left side abd pain Time Seen by Provider: 08/19/21 14:20 Source: patient Mode of arrival: Ambulatory History of Present Illness HPI narrative: 66-year-old female with hypertension, diabetes, depression, obstructive sleep apnea presents to the ED with 2 days of left-sided abdominal pain. Patient states sudden onset of left lower quadrant pain yesterday prior to dinner, worsened through the night and this morning. Pain is aggravated by movement, walking. Patient denies fever, chills, chest pain, shortness of breath, nausea, vomiting, diarrhea, constipation, dysuria, flank pain, dizziness, lightheadedness, syncope. Patient denies hematochezia, melena. Patient's last bowel movement was this morning, which she endorses is normal. Patient denies history of diverticulitis or kidney stones. Endorses prior abdominal surgeries including appendectomy, cholecystectomy. Related Data Home Medications Medication Instructions Recorded Confirmed amlodipine 10 mg tablet 10 mg PO DAILY 09/10/18 03/29/21 citalopram 20 mg tablet 40 mg PO QPM 09/10/18 03/29/21 levothyroxine 100 mcg tablet 100 mcg PO QAM 09/10/18 03/29/21 metformin 500 mg tablet 1,000 mg PO BID 09/10/18 03/29/21 metoprolol tartrate 50 mg tablet 50 mg PO BID 09/10/18 03/29/21 multivitamin 1 tab PO QPM 09/10/18 03/29/21 omeprazole 20 mg capsule,delayed 20 mg PO QPM 09/10/18 03/29/21 release triamterene 37.5 2 cap PO DAILY 09/10/18 03/29/21 mg-hydrochlorothiazide 25 mg capsule venlafaxine 150 mg 150 mg PO QPM 09/10/18 03/29/21 capsule,extended release 24 hr [employer]pir[employer] Dreamstation BIPAP #1 ea 09/14/18 03/29/21 aspirin 81 mg tablet,delayed 81 mg PO DAILY 10/11/20 03/29/21 release atorvastatin 40 mg tablet 40 mg PO DAILY 10/11/20 03/29/21 Allergies Allergy/AdvReac Type Severity Reaction Status Date / Time Sulfa (Sulfonamide Allergy Severe Vomiting, Verified 03/29/21 14:15 Antibiotics) Rash, [SULFA (SULFONAMIDE Pruritus, ANTIBIOTICS)] Fever povidone-iodine AdvReac Mild Contact Verified 03/29/21 14:15 [From Betadine] allergy, Swelling soap [From Betadine] AdvReac Mild Contact Verified 03/29/21 14:15 allergy, Swelling Review of Systems <Farzaneh Mayberry PA-C - Last Filed: 08/19/21 20:51> Review of Systems ROS Unobtainable: All systems reviewed & are unremarkable except as noted in HPI and below Constitutional Constitutional: Denies chills, Denies fatigue, Denies fever(s), Denies frequent falls, Denies lethargy and Denies weakness Eyes Eyes: Denies change in vision, Denies eye discharge, Denies irritation and Denie s loss of vision ENT Ears, Nose, Mouth, and Throat: Denies change in voice, Denies dizziness, Denies neck pain, Denies sore throat and Denies throat swelling Cardiovascular Cardiovascular: Denies chest pain, Denies irregular heart rhythm, Denies lightheadedness, Denies palpitations, Denies dyspnea, Denies dyspnea on exertion and Denies orthopnea Respiratory Respiratory: Denies cough, Denies dyspnea, Denies dyspnea on exertion and Denies wheezing Gastrointestinal Gastrointestinal: Reports abdominal pain, Denies change in bowel habits, Denies diarrhea, Denies nausea and Denies vomiting Genitourinary Genitourinary: Denies hematuria, Denies flank pain, Denies urinary incontinence and Denies urinary urgency Musculoskeletal Musculoskeletal: Denies back pain, Denies muscle weakness, Denies neck pain, D enies numbness and Denies tingling Integumentary/Breasts Skin/Breast: Denies pruritus, Denies erythema, Denies rash and Denies wounds Neurologic Neurologic: Denies behavioral changes, Denies confusion, Denies dizziness, Denies frequent falls, Denies loss of vision, Denies numbness, Denies tingling and Denies weakness Psychiatric Psychiatric: Denies anxiety, Denies behavioral changes, Denies confusion, Denies depression, Denies homicidal ideation and Denies suicidal ideation Endocrine Endocrine: Denies fatigue, Denies flushing and Denies palpitations Hematologic/Lymphatic Hematologic/Lymphatic: Denies easy bruising Allergic/Immunologic Allergic/Immunologic: Denies urticaria, Denies throat swelling and Denies wheezing Patient History <Farzaneh Mayberry PA-C - Last Filed: 08/19/21 20:51> Medical History Anxiety Depression Excessive daytime sleepiness Hypertension 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 Mood disorder Morbid obesity with body mass index of 40.0-49.9 Obstructive sleep apnea of adult Peripheral neuropathy Snoring Type 2 diabetes mellitus Surgical History Hx of cholecystectomy Social History marital status: details: to Bill, lives in [place] household members: spouse lives independently: Yes caregiver/support person: No housing: house occupational status: employed Smoking Status: Never smoker alcohol intake: never substance use type: does not use Smoking Status: Never smoker alcohol intake frequency: holidays/special occasions only Substance Use Type: does not use Exam <Farzaneh Mayberry PA-C - Last Filed: 08/19/21 20:51> Initial Vital Signs Initial Vital Signs: Vital Signs Temperature 97.9 F 08/19/21 13:53 Pulse Rate 69 08/19/21 13:53 Respiratory Rate 18 08/19/21 13:53 Blood Pressure 139/63 08/19/21 13:53 Pulse Oximetry 97 08/19/21 13:53 Const General: cooperative, healthy appearing and comfortable [facility] Head: normal to inspection Eyes General: appearance normal, both eyes and all related structures Neck Neck: normal visual inspection Chest Chest: normal inspection of the chest Resp Effort & Inspection: normal respiratory effort Auscultation: clear to auscultation bilaterally Cardio Rate: regular rate Rhythm: regular rhythm GI Other: Abdomen is soft, nondistended. Abdomen is exquisitely tender to palpation in the left upper and left lower quadrants. No CVA tenderness. General: No CVA tenderness Skin General: no rashes or lesions noted Neuro General: patient alert, patient awake and patient oriented x3 Psych Appearance: grossly normal Mental Status: mental status grossly normal <Uli Guerrero DO - Last Filed: 08/20/21 07:00> Initial Vital Signs Initial Vital Signs: Vital Signs Temperature 97.9 F 08/19/21 13:53 Pulse Rate 69 08/19/21 13:53 Respiratory Rate 18 08/19/21 13:53 Blood Pressure 139/63 08/19/21 13:53 Pulse Oximetry 97 08/19/21 13:53 Course <Farzaneh Mayberry PA-C - Last Filed: 08/19/21 20:51> Orders Ordered: Discontinued Medications Ketorolac Tromethamine (Ketorolac 30 Mg/Ml Vial) 15 mg IV NOW ONE Stop: 08/19/21 15:17 Last Admin: 08/19/21 15:36 Dose: 15 mg Documented by: SHONNA Vital Signs Vital signs: Vital Signs - 8 hr 08/19/21 13:53 08/19/21 16:21 Temperature 97.9 F Pulse Rate 69 68 Respiratory Rate 18 16 Blood Pressure 139/63 131/82 Pulse Oximetry 97 98 <Uli Guerrero DO - Last Filed: 08/20/21 07:00> Orders Ordered: Discontinued Medications Ketorolac Tromethamine (Ketorolac 30 Mg/Ml Vial) 15 mg IV NOW ONE Stop: 08/19/21 15:17 Last Admin: 08/19/21 15:36 Dose: 15 mg Documented by: SHONNA Vital Signs Vital signs: Vital Signs - 8 hr 08/19/21 13:53 08/19/21 16:21 Temperature 97.9 F Pulse Rate 69 68 Respiratory Rate 18 16 Blood Pressure 139/63 131/82 Pulse Oximetry 97 98 MDM - Abdominal Pain <Farzaneh Mayberry PA-C - Last Filed: 08/19/21 20:51> Lab Data Lab results narrative: Labs within normal limits, UA negative for UTI Result diagrams: 08/19/21 14:32 08/19/21 14:32 Labs: Lab Results 08/19/21 08/19/21 Range/Units 14:32 14:32 WBC 13.3 H (4.5-11.0) X10^3/uL RBC 4.68 (4.0-5.2) X10^6/uL Hgb 12.4 (12.0-16.0) g/dL Hct 38.6 (36-46) % MCV 82.5 (80-100) fL MCH 26.6 (26-34) PG MCHC 32.2 (30-36) % RDW 15.7 H (11.6-14.8) % Plt Count 321 (150-400) X10^3/uL Neut % (Auto) 67.9 (50-75) % Lymph % (Auto) 22.4 L (25-40) % Meigs % (Auto) 5.5 (3-14) % Eos % (Auto) 3.6 (2-4) % Baso % (Auto) 0.6 (0-2) % Neut # (Auto) 9000 H (4573-1838) /uL Lymph # (Auto) 3000 (9897-9534) /uL Meigs # (Auto) 700 (0-900) /uL Eos # (Auto) 500 H (0-450) /uL Baso # (Auto) 100 (0-100) /uL Sodium 138 (137-145) mmol/L Potassium 3.3 L (3.4-5.1) mmol/L Chloride 99 (98-107) mmol/L Carbon Dioxide 29 (22-32) mmol/L BUN 17 (7-17) mg/dL Creatinine 0.89 (0.52-1.04) mg/dL Estimated GFR > 60.0 (>60) mL/min BUN/Creatinine Ratio 19.1 (6-22) Glucose 134 H (80-110) mg/dL Calcium 10.2 (8.4-10.2) mg/dL Total Bilirubin 0.4 (0.2-1.3) mg/dL AST 48 H (14-36) IU/L ALT 52 H (<35) IU/L Alkaline Phosphatase 167 H (38-126) U/L Total Protein 7.9 (6.3-8.2) g/dL Albumin 4.5 (3.5-5.0) g/dL Globulin 3.4 (1.7-4.1) g/dL Albumin/Globulin Ratio 1.3 (1.0-2.8) Lipase 118 (23-300) U/L Point of care testing: Urine Dip Bedside Urine Glucose Negative Bedside Urine Bilirubin - Negative Bedside Urine Ketone - Negative Urine Specific [place] 1.015 Bedside Urine Occult Blood - Negative Bedside Urine pH 7.0 Bedside Urine Protein - Negative Bedside Urine Urobilinogen - Negative Bedside Urine Nitrite - Negative Bedside Urine Leukocytes - Negative Esterase Imaging Data CT scan - abdomen/pelvis: Radiologist's Impression: PROCEDURE:? CT ABDOMEN PELVIS W CON ? INDICATIONS:? LLq, LUQ pain ? TECHNIQUE:? After the administration of intravenous contrast, axial sections acquired from the lung bases to the pubic symphysis.? Coronal and sagittal reformats were performed.? For radiation dose reduction, the following was used:? automated exposure control, adjustment of mA and/or kV according to patient size.? ? COMPARISON:? None. ? FINDINGS:? Image quality:? Excellent.? ? Lung bases:? Unremarkable. Heart:? No significant findings. ? ABDOMEN: Liver:? Mild, diffuse fatty infiltration of the liver. Gallbladder:? Surgically absent? ? Biliary ducts:? Unremarkable.? ? Pancreas:? Unremarkable.? ? Spleen:? Unremarkable.? ? Adrenal Glands:? Unremarkable.? ? Kidneys and Ureters:? Unremarkable.? ? ? Stomach and Bowel:? Stomach, small bowel loops, and colon are unremarkable.? Mild inflammatory changes surrounding central locule of fat noted at the anti mesenteric margin of the descending colon compatible with epiploic appendagitis.? Appendix is not identified, however no inflammatory changes or free fluid are noted adjacent to the cecum. Peritoneum:? No abnormal intraperitoneal fluid.? No free air.? ? Ventral Wall: ? Small right paramedian, fat containing supraumbilical ventral hernia. Abdominal Nodes:? No retroperitoneal or mesenteric adenopathy by size criteria.? Vessels:? Aorta and inferior vena cava are normal in size.? ? PELVIS: Pelvic Organs:? Unremarkable.? ? Bladder:? Unremarkable.? ? Pelvic Nodes: No enlarged lymph nodes.? Miscellaneous: No hernias are seen. ? ? ? Bones:? Spine degenerative disc disease and facet arthropathy. ? ? IMPRESSION:? ? 1. Left colon epiploic appendagitis. ? 2. Hepatic steatosis. ? 3. Right paramedian, fat containing, supraumbilical ventral hernia.? ? ? Dictated by: Leanna Ohara MD, PhD on 08/19/2021 at 15:58 ? ? Approved by: Leanna Ohara MD, PhD on 08/19/2021 at 16:02 ? MDM Narrative Medical decision making narrative: 66-year-old female with hypertension, diabetes, depression, obstructive sleep apnea presents to the ED with 2 days of left-sided abdominal pain. Concern for diverticulitis versus urolithiasis versus other intra-abdominal infection versus bowel obstruction Will order labs, lipase, UA, CT abdomen pelvis. Will give Toradol for pain. CT shows epiploic appendagitis. Consult patient on using NSAIDs for symptom relief. Discharge patient home with ED return precautions. Patient verbalized understanding <Uli Guerrero DO - Last Filed: 08/20/21 07:00> Lab Data Labs: Lab Results 08/19/21 08/19/21 Range/Units 14:32 14:32 WBC 13.3 H (4.5-11.0) X10^3/uL RBC 4.68 (4.0-5.2) X10^6/uL Hgb 12.4 (12.0-16.0) g/dL Hct 38.6 (36-46) % MCV 82.5 (80-100) fL MCH 26.6 (26-34) PG MCHC 32.2 (30-36) % RDW 15.7 H (11.6-14.8) % Plt Count 321 (150-400) X10^3/uL Neut % (Auto) 67.9 (50-75) % Lymph % (Auto) 22.4 L (25-40) % [place] % (Auto) 5.5 (3-14) % Eos % (Auto) 3.6 (2-4) % Baso % (Auto) 0.6 (0-2) % Neut # (Auto) 9000 H (6916-2876) /uL Lymph # (Auto) 3000 (6360-5948) /uL [place] # (Auto) 700 (0-900) /uL Eos # (Auto) 500 H (0-450) /uL Baso # (Auto) 100 (0-100) /uL Sodium 138 (137-145) mmol/L Potassium 3.3 L (3.4-5.1) mmol/L Chloride 99 (98-107) mmol/L Carbon Dioxide 29 (22-32) mmol/L BUN 17 (7-17) mg/dL Creatinine 0.89 (0.52-1.04) mg/dL Estimated GFR > 60.0 (>60) mL/min BUN/Creatinine Ratio 19.1 (6-22) Glucose 134 H (80-110) mg/dL Calcium 10.2 (8.4-10.2) mg/dL Total Bilirubin 0.4 (0.2-1.3) mg/dL AST 48 H (14-36) IU/L ALT 52 H (<35) IU/L Alkaline Phosphatase 167 H (38-126) U/L Total Protein 7.9 (6.3-8.2) g/dL Albumin 4.5 (3.5-5.0) g/dL Globulin 3.4 (1.7-4.1) g/dL Albumin/Globulin Ratio 1.3 (1.0-2.8) Lipase 118 (23-300) U/L Point of care testing: Urine Dip Bedside Urine Glucose Negative Bedside Urine Bilirubin - Negative Bedside Urine Ketone - Negative Urine Specific [place] 1.015 Bedside Urine Occult Blood - Negative Bedside Urine pH 7.0 Bedside Urine Protein - Negative Bedside Urine Urobilinogen - Negative Bedside Urine Nitrite - Negative Bedside Urine Leukocytes - Negative Esterase Discharge Plan Departure Patient Disposition: Home Clinical Impression: Epiploic appendagitis Instructions: Acute Abdominal Pain Activity Restrictions/Additional Instructions: You were evaluated in the ED for abdominal pain. Your labs were normal. Your CT showed a condition called epiploic appendagitis which is an inflammation of fat pockets on the surface of the colon. Your symptoms are likely from this. You can treat the pain with ibuprofen, symptoms generally resolve in 1-2 weeks. Please follow-up with your PCP. Return to the ED if your symptoms worsen, you experience fever, chills. Prescriptions: No Action metformin 500 mg tablet 1,000 mg PO BID 0RF Label Comments: TK 2 TS PO QAM AND 2 TS PO QPM venlafaxine 150 mg capsule,extended release 24hr 150 mg PO QPM 0RF Label Comments: TK 1 C PO QD triamterene-hydrochlorothiazid 37.5-25 mg capsule 2 cap PO DAILY 0RF Label Comments: TK 2 CS PO QD levothyroxine 100 mcg tablet 100 mcg PO QAM 0RF citalopram 20 mg tablet 40 mg PO QPM 0RF Label Comments: TK 2 TS PO QD amlodipine 10 mg tablet 10 mg PO DAILY 0RF metoprolol tartrate 50 mg tablet 50 mg PO BID 0RF Label Comments: TK 1 T PO BID FOR BLOOD PRESSURE omeprazole 20 mg capsule,delayed release(DR/EC) 20 mg PO QPM 0RF Label Comments: TK 1 C PO QD 30 MIN B FIRST MEAL OF THE DAY FOR STOMACH OR ACID SUPPRESSION multivitamin Tablet 1 tab PO QPM 0RF (DME) Respironics Dreamstation BIPAP Qty: 1 0RF Dose Instruction: As directed Label Comments: Pressure: IPAP 20 EPAP 8 DME: [facility] Rx Instructions: As directed aspirin 81 mg tablet,delayed release (DR/EC) 81 mg PO DAILY 0RF atorvastatin 40 mg tablet 40 mg PO DAILY 0RF Referrals: Dean Caro MD [Primary Care Provider] - <Uli Guerrero DO - Last Filed: 08/20/21 07:00> Cosign ED Attending Cosignature Attestation: Dr Guerrero Co-Sign Statement: I was available for consultation during this patient's emergency department visit. This chart is signed by myself for administrative purposes only. I did not have direct contact with this patient during this visit. They were seen independently by the APC.
[2021-08-19] MEDS: KETOROLAC 30 MG/ML VIAL 15 MG IV (15:36)
[2021-08-19 16:21] VITALS: BP 131/82; PULSE 68; RESP 16; O2SAT 98
== END 2021-08-19 16:21 | disposition home or self-care (01) ==
PROVIDERS: Emergency Medicine; Emergency Provider Student in an Organized Health Care Education/Training Program; PCP Family Medicine
DX: K63.89 Other specified diseases of intestine (principal)
CPT/HCPCS: 36415; 74177; 80053; 81003; 83690; 85025; 93005; 96374; 99284; J1885

== ENCOUNTER 2022-08-22 06:13 | Day surgery (SDC) | payer MEDICARE, OTHER, SELFPAY ==
--- NOTE | 2022-08-22 | PATH_ITS ---
[facility] Accession Number: [id number] No. of containers..02 Tissue . 01 Material submitted: . PART A: colon - TRANSVERSE COLON POLYP PART B: rectum - RECTAL POLYP . 01 Diagnosis: A. Transverse Colon, Polyp, Biopsy: Tubular adenoma. . B. Rectum, Polyp, Biopsy: Hyperplastic polyp with features of mucosal prolapse. MRV 08/27/2022 1514 Local . 01 Electronically signed: . Shara Green MD, Pathologist NPI- [id number] . 01 Gross description: . Part A: TRANSVERSE COLON POLYP: Received in formalin is 1 fragment(s) of shen, soft tissue measuring 0.5 x 0.3 x 0.3 cm submitted entirely in 1 cassette(s) Part B: RECTAL POLYP: Received in formalin are 2 fragment(s) of shen, soft tissue measuring 0.3 x 0.2 x 0.2 cm to 0.3 x 0.2 x 0.2 cm submitted entirely in 1 cassette(s) /CPE 08/26/2022 0529 Local . 01 Pathologist provided ICD-10: D12.3 . 01 CPT . 116563, 913031 Specimen Comment: A courtesy copy of this report has been sent to [facility] Pathology Performed at: 01 [facility] [address] [place] [address] [address], [place], [place] [id number] MD Kelechi Keys MD Phone: [phone]
[2022-08-22 06:52] VITALS: BP 133/81; PULSE 73; RESP 16; TEMP 36.2; O2SAT 97; BMI 40.2
[2022-08-22] MEDS: LACTATED RINGERS 1,000 ML 120 ML IV (07:16)
--- NOTE | 2022-08-22 07:40 | P.HP_ITS ---
History of Present Illness History of Present Illness Chief complaint: Colonoscopy Narrative: Sandy presents today for screening colonoscopy. She is not had any family history of colon cancer nor any concerning symptoms. She did have an episode of abdominal pain that she went to the emergency room for but is not concerned about that it is all resolved and has had no other issues. She has no questions concerns. She has had a colonoscopy in the past and believes that she has polyps but can not remember exactly. 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 Mood disorder Morbid obesity with body mass index of 40.0-49.9 Obstructive sleep apnea of adult Peripheral neuropathy Snoring Type 2 diabetes mellitus Surgical History Hx of cholecystectomy Family & Social History Social History: household members spouse lives independently Yes caregiver/support person No Tobacco & Substance use: Smoking Status Never smoker alcohol intake never alcohol intake frequency holiday/special occasion Substance Use Type does not use Meds Home Medications and Allergies Home Medications Medication Instructions Recorded Confirmed Type amlodipine 10 mg tablet 10 mg PO DAILY 09/10/18 08/22/22 History citalopram 20 mg tablet 40 mg PO QPM 09/10/18 08/22/22 History levothyroxine 100 mcg tablet 100 mcg PO QAM 09/10/18 08/22/22 History metformin 500 mg tablet 1,000 mg PO BID 09/10/18 08/22/22 History metoprolol tartrate 50 mg tablet 50 mg PO BID 09/10/18 08/22/22 History multivitamin 1 tab PO QPM 09/10/18 05/20/22 History omeprazole 20 mg capsule,delayed 20 mg PO QPM 09/10/18 08/22/22 History release triamterene 37.5 2 cap PO DAILY 09/10/18 05/20/22 History mg-hydrochlorothiazide 25 mg capsule venlafaxine 150 mg 150 mg PO QPM 09/10/18 08/22/22 History capsule,extended release 24 hr RespirEzeecubes Dreamstation BIPAP #1 ea 09/14/18 05/20/22 History aspirin 81 mg tablet,delayed 81 mg PO DAILY 10/11/20 08/22/22 History release atorvastatin 40 mg tablet 40 mg PO DAILY 10/11/20 08/22/22 History glipizide 10 mg tablet 10 mg PO DAILY 05/20/22 08/22/22 History sodium sul 1.479 gram-potas ch See Rx Instructions PO PER PKG DIR 08/11/22 Rx 0.188 gram-magnes sul 0.225 gram #24 tabs tablet (Sutab) Allergies Allergy/AdvReac Type Severity Reaction Status Date / Time Sulfa (Sulfonamide Allergy Severe Vomiting, Verified 05/20/22 13:35 Antibiotics) Rash, [SULFA (SULFONAMIDE Pruritus, ANTIBIOTICS)] Fever povidone-iodine AdvReac Mild Contact Verified 05/20/22 13:35 [From Betadine] allergy, Swelling soap [From Betadine] AdvReac Mild Contact Verified 05/20/22 13:35 allergy, Swelling Exam Vital Signs (past 8 hours): - 08/22/22 06:52 Temperature 97.2 F L Pulse Rate 73 Respiratory Rate 16 Blood Pressure 133/81 Pulse Oximetry 97 Oxygen Delivery Method Room Air Oxygen Delivery Method Room Air Const General: cooperative, healthy appearing and comfortable Resp Effort & Inspection: normal respiratory effort and able to speak in complete sentences Cardio Pulses: radial pulses present GI Palpation: soft and tender Assessment & Plan Assessment & Plan narrative: I discussed the risks benefits and alternatives of a screening colonoscopy with Ms. Romero she understands all these and would like to proceed today. Time Spent With Patient Critical Care time: I spent a total of [] minutes of critical care time on this patient's care today; this time is exclusive of procedural time.
[2022-08-22 08:31] VITALS: BP 120/53; PULSE 75; RESP 17; TEMP 36.2; O2SAT 94
[2022-08-22 08:37] VITALS: BP 105/55; PULSE 74; RESP 14; O2SAT 96
--- NOTE | 2022-08-22 08:42 | P.OP.COLON_ITS ---
Operative Date/Time/Diagnoses Date of procedure: 08/22/22 Time of procedure: 08:45 Pre-op diagnosis: Screening and history of polyps Post-op diagnosis: same Procedure & Clinicians Surgeon: Savita Roman Procedure Notes Procedure in detail: Patient was taken to the endoscopy suite and placed in a left lateral decubitus position. A time-out was performed. Anesthesia with conscious sedation was performed by an TESTER WASTE DISPOSAL LEAKAGE. Digital rectal exam was performed there were no masses or strictures. The colonoscope was introduced into the anal canal and advanced through to the cecum. There were multiple turns in both the sigmoid and also 1 final turn after the hepatic flexure to get into the cecum that made the procedure a little bit more challenging than usual. However photograph was taken of the appendiceal orifice and the scope was withdrawn without issues. Total withdrawal time was 25 minutes. There were 2 biopsies. In the transverse colon a moderately small polyp was snared and removed. And in the rectum there were 2 very small polyps that were biopsied with Jumbo forceps. The wrap was good prep [place] bowel prep score of 2. Specimen(s): other (1. Transverse polyp 2. Rectal polyps x2) Complications: none Impression: A total of 3 polyps were biopsied. Depending on the pathology results recommended follow-up will be determined.
[2022-08-22 08:44] VITALS: BP 107/71; PULSE 71; RESP 26; O2SAT 98
== END 2022-08-22 08:49 | disposition home or self-care (01) ==
PROVIDERS: PCP Family Medicine; Referring Provider Surgery; Visit Provider Surgery
PROC: 0DJD8ZZ Inspection of Lower Intestinal Tract, Via Natural or Artificial Opening Endoscopic (ICD-10-PCS; CPT 45378; principal; 2022-08-22 07:45)
DX: Z12.11 Encounter for screening for malignant neoplasm of colon (principal); Z86.010 Personal history of colon polyps; D12.3 Benign neoplasm of transverse colon; K62.1 Rectal polyp
CPT/HCPCS: 45385; 45380; J2704

== ENCOUNTER → 2024-06-04 10:23 | Outpatient (CLI) | payer MEDICARE, OTHER, SELFPAY ==
--- NOTE | 2024-06-04 | DI.MG.S_ITS ---
BILATERAL DIGITAL SCREENING MAMMOGRAM 3D/2D WITH CAD: 06/04/2024 CLINICAL: Routine screening. Family history of breast cancer. Comparison is made to exams dated: 03/07/2021 mammogram, 02/25/2018 mammogram, and 01/29/2017 mammogram - [facility]. There are scattered areas of fibroglandular density (category b / 25%-50% glandular tissue). Current study was also evaluated with a Computer Aided Detection (CAD) system. No significant masses, calcifications, or other findings are seen in either breast. There has been no significant interval change. IMPRESSION: NEGATIVE There is no mammographic evidence of malignancy. A 1 year screening mammogram is recommended. Based on the Tyrer Cuzick model (a risk assessment model) the patient's lifetime risk is 7.9% and her 10 year risk is 4.7%. According to the ACR, ACS, and NCCN guidelines, an annual breast MRI exam along with mammogram is recommended if the patient's lifetime risk is 20% or greater. This exam was interpreted at Station ID: [id number]. NOTE: For mammograms, a report in lay terms will be sent to the patient. Approximately 15% of breast malignancies will not be visualized mammographically. In the management of a palpable breast mass, a negative mammogram must not discourage biopsy of a clinically suspicious lesion. Electronically Signed By: Soto byrd/claudette:06/06/2024 07:24:51 letter sent: Normal Exam ACR BI-RADS Category 1: Negative
== END ==
PROVIDERS: PCP Family Medicine; Referring Provider Family Medicine; Visit Provider Family Medicine
DX: Z12.31 Encounter for screening mammogram for malignant neoplasm of breast (principal); Z80.3 Family history of malignant neoplasm of breast
CPT/HCPCS: 77063; 77067

== ENCOUNTER 2025-01-06 12:47 | Emergency (ER) | payer MEDICARE, OTHER, SELFPAY ==
[2025-01-06 12:55] VITALS: BP 167/69; PULSE 58; RESP 18; TEMP 36.4; O2SAT 97; BMI 29.2
--- NOTE | 2025-01-06 13:15 | ED.ABDPAIN ---
HPI - Abdominal Pain General Chief Complaint: Abdominal Pain Stated Complaint: possible hernia Time Seen by Provider: 01/06/25 13:08 Source: patient Mode of arrival: Family Vehicle History of Present Illness HPI narrative: Ms. Clark is a pleasant 69-year-old female with a past medical history of hypertension, diabetes, TATI, depression, ventral hernia, hepatic steatosis, colonic epiploic appendagitis who presents to the emergency department for abdominal pain and ?massive lump? just above her belly button since this morning. Patient states occasionally her abdominal hernia will stick out and she is able to push it back in. Last night she noticed that her abdominal hernia was pushed out there is a small bruise overlying it but it did not hurt her. This morning when she woke up she felt normal however while going to the bathroom, urinating, she developed acute pain in her abdomen and felt her hernia pushed out significantly. She has had significant pain of her abdomen since this. She notices the mass when she is standing and moving but it appears to go flat when she lies down. She denies nausea, vomiting, fevers, chills, burning with urination or hematuria. She does note chronic constipation and had a small firm bowel movement this morning. No diarrhea. Prior abdominal surgeries include appendectomy and cholecystectomy. She is currently on a weight loss eating plan and had a meal replacement shake around 9:00 a.m. She is here with her , Bill. She does not drink ETOH. Related Data Home Medications ?Medication ?Instructions ?Recorded ?Confirmed amlodipine 10 mg tablet 10 mg PO DAILY 09/10/18 08/22/22 citalopram 20 mg tablet 40 mg PO QPM 09/10/18 08/22/22 levothyroxine 100 mcg tablet 100 mcg PO QAM 09/10/18 08/22/22 metformin 500 mg tablet 1,000 mg PO BID 09/10/18 08/22/22 metoprolol tartrate 50 mg tablet 50 mg PO BID 09/10/18 08/22/22 multivitamin 1 tab PO QPM 09/10/18 05/20/22 omeprazole 20 mg capsule,delayed 20 mg PO QPM 09/10/18 08/22/22 release triamterene 37.5 2 cap PO DAILY 09/10/18 05/20/22 mg-hydrochlorothiazide 25 mg capsule venlafaxine 150 mg 150 mg PO QPM 09/10/18 08/22/22 capsule,extended release 24 hr Respironics Dreamstation BIPAP #1 ea 09/14/18 05/20/22 aspirin 81 mg tablet,delayed 81 mg PO DAILY 10/11/20 08/22/22 release atorvastatin 40 mg tablet 40 mg PO DAILY 10/11/20 08/22/22 glipizide 10 mg tablet 10 mg PO DAILY 05/20/22 08/22/22 Previous Rx's ?Medication ?Instructions ?Recorded sodium sul 1.479 gram-potas ch See Rx Instructions PO PER PKG DIR 08/11/22 0.188 gram-magnes sul 0.225 gram #24 tabs tablet (Sutab) Allergies Allergy/AdvReac Type Severity Reaction Status Date / Time Sulfa (Sulfonamide Allergy Severe Vomiting, Verified 01/06/25 13:00 Antibiotics) (SULFA Rash, (SULFONAMIDE ANTIBIOTICS)) Pruritus, Fever povidone-iodine (From AdvReac Mild Contact Verified 01/06/25 13:00 Betadine) allergy, Swelling soap (From Betadine) AdvReac Mild Contact Verified 01/06/25 13:00 allergy, Swelling Review of Systems Review of Systems ROS Unobtainable: All systems reviewed & are unremarkable except as noted in HPI and below Patient History Medical History Anxiety Depression Excessive daytime sleepiness Hypertension 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 Well-developed patient, in mild distress. HEAD: Atraumatic. Normocephalic. EYES: No scleral icterus. No injection or drainage. NECK: Trachea midline. Cervical ROM intact. CARDIOVASCULAR: Regular rate and rhythm. RESPIRATORY: ?Nonlabored respirations. ?Speaking in clear, full sentences. ?Clear to auscultation. Breath sounds equal bilaterally. No wheezes, rales, or rhonchi. ? GASTROINTESTINAL: Abdomen soft, nondistended. Patient is exquisitely tender in the suprapubic and periumbilical region. Small ecchymosis just above the umbilicus with tenderness. No rebound or guarding. Bowel sounds present. No abdominal wall cellulitis present. EXTREMITIES: No edema or joint tenderness. BACK: No CVA tenderness. NEURO: AOx3. ?Clear speech. ?Moves all 4 extremities appropriately. SKIN: No rash or erythema of visible areas Initial Vital Signs Initial Vital Signs: Vital Signs Temperature 97.5 F L 01/06/25 12:55 Pulse Rate 58 L 01/06/25 12:55 Respiratory Rate 18 01/06/25 12:55 Blood Pressure 167/69 H 01/06/25 12:55 Pulse Oximetry 97 01/06/25 12:55 Oxygen Delivery Method Room Air 01/06/25 12:55 Course Orders Ordered: ED Orders 01/06/25 13:21 Urine Culture Stat Urine Microscopic Stat 01/06/25 13:28 CT abdomen pelvis w con Stat 01/06/25 13:29 Complete Blood Count AUTO DIFF Stat Comprehensive Metabolic Panel Stat Lactate (Lactic Acid) Stat Lipase Stat Troponin & CK Cardiac Panel Stat 01/06/25 14:26 XR chest 1V Stat EKG-12 Lead Stat 01/06/25 16:11 Trop I [Troponin I] Stat Discontinued Medications Sodium Chloride (Normal Saline 0.9%) 1,000 mls @ 1,000 mls/hr IV BOLUS ONE Stop: 01/06/25 14:26 Last Infusion: 01/06/25 14:51 Dose: Infused Documented By: Admin: 01/06/25 13:43 Dose: 1,000 mls/hr Documented By: BALWINDER Morphine Sulfate (Morphine 4 Mg/Ml Inj) 4 mg IV NOW ONE Stop: 01/06/25 13:28 Last Admin: 01/06/25 13:42 Dose: 4 mg Documented By: BALWINDER Ondansetron HCl (Ondansetron 4 Mg/2 Ml Inj) 4 mg IV NOW ONE Stop: 01/06/25 13:28 Last Admin: 01/06/25 13:43 Dose: 4 mg Documented By: BALWINDER Pantoprazole Sodium (Pantoprazole 40 Mg Vial) 40 mg IV NOW ONE Stop: 01/06/25 14:27 Last Admin: 01/06/25 14:45 Dose: 40 mg Documented By: BALWINDER Vital Signs Vital signs: Vital Signs - 8 hr 01/06/25 12:55 01/06/25 14:41 01/06/25 18:18 Temperature 97.5 F L Pulse Rate 58 L 47 L 51 L Respiratory Rate 18 14 20 Blood Pressure 167/69 H 164/71 H 140/63 Pulse Oximetry 97 97 97 Oxygen Delivery Method Room Air Room Air Room Air 01/06/25 19:18 Temperature Pulse Rate 49 L Respiratory Rate 14 Blood Pressure 134/62 Pulse Oximetry 97 Oxygen Delivery Method Room Air MDM - Abdominal Pain Medical Records Attestation: I reviewed the patient's medical records. Lab Data 01/06/25 13:29 01/06/25 13:29 Labs: Lab Results 01/06/25 01/06/25 01/06/25 Range/Units 13:21 13:29 15:41 WBC 8.1 (4.5-11.0) X10^3/uL RBC 4.75 (4.0-5.2) X10^6/uL Hgb 13.9 (12.0-16.0) g/dL Hct 41.5 (36-46) % MCV 87.4 (80-100) fL MCH 29.2 (26-34) PG MCHC 33.4 (30-36) % RDW 14.1 (11.6-14.8) % Plt Count 237 (150-400) X10^3/uL Neut % (Auto) 59.9 (50-75) % Lymph % (Auto) 27.0 (25-40) % Maries % (Auto) 9.2 (3-14) % Eos % (Auto) 2.7 (2-4) % Baso % (Auto) 1.2 (0-2) % Neut # (Auto) 4900 (1444-3488) /uL Lymph # (Auto) 2200 (4204-2263) /uL Maries # (Auto) 700 (0-900) /uL Eos # (Auto) 200 (0-450) /uL Baso # (Auto) 100 (0-100) /uL Sodium 138 (137-145) mmol/L Potassium 3.5 (3.4-5.1) mmol/L Chloride 96 L (98-107) mmol/L Carbon Dioxide 34 H (22-32) mmol/L BUN 34 H (7-17) mg/dL Creatinine 0.94 (0.52-1.04) mg/dL Estimated GFR > 60 (>60) mL/min BUN/Creatinine Ratio 36.2 H (6-22) Glucose 112 H (70-99) mg/dL Lactate 2.1 0.8 (0.7-2.1) mmol/L Calcium 11.1 H (8.4-10.2) mg/dL Total Bilirubin 0.6 (0.2-1.3) mg/dL AST 68 H (14-36) IU/L ALT 103 H (<35) IU/L Alkaline Phosphatase 119 (38-126) U/L Total Creatine Kinase 40 (30-135) U/L Troponin I < 0.012 (0.01-0.034) ng/mL Total Protein 8.0 (6.3-8.2) g/dL Albumin 4.8 (3.5-5.0) g/dL Globulin 3.2 (1.7-4.1) g/dL Albumin/Globulin Ratio 1.5 (1.0-2.8) Lipase 207 (23-300) U/L Urine RBC 0-1/hpf (0-5/HPF) Urine WBC 1-5/hpf (0-5/HPF) Ur Squamous Epith Cells 1-5 /hpf (0-5/HPF) Urine Bacteria Few (2-10) H (None) Ur Culture Indicated? Specimen cultured Vol Urine Centrifuged 10ml (spun) 01/06/25 Range/Units 16:11 WBC (4.5-11.0) X10^3/uL RBC (4.0-5.2) X10^6/uL Hgb (12.0-16.0) g/dL Hct (36-46) % MCV (80-100) fL MCH (26-34) PG MCHC (30-36) % RDW (11.6-14.8) % Plt Count (150-400) X10^3/uL Neut % (Auto) (50-75) % Lymph % (Auto) (25-40) % Maries % (Auto) (3-14) % Eos % (Auto) (2-4) % Baso % (Auto) (0-2) % Neut # (Auto) (3261-9382) /uL Lymph # (Auto) (3891-3999) /uL Maries # (Auto) (0-900) /uL Eos # (Auto) (0-450) /uL Baso # (Auto) (0-100) /uL Sodium (137-145) mmol/L Potassium (3.4-5.1) mmol/L Chloride (98-107) mmol/L Carbon Dioxide (22-32) mmol/L BUN (7-17) mg/dL Creatinine (0.52-1.04) mg/dL Estimated GFR (>60) mL/min BUN/Creatinine Ratio (6-22) Glucose (70-99) mg/dL Lactate (0.7-2.1) mmol/L Calcium (8.4-10.2) mg/dL Total Bilirubin (0.2-1.3) mg/dL AST (14-36) IU/L ALT (<35) IU/L Alkaline Phosphatase (38-126) U/L Total Creatine Kinase (30-135) U/L Troponin I < 0.012 (0.01-0.034) ng/mL Total Protein (6.3-8.2) g/dL Albumin (3.5-5.0) g/dL Globulin (1.7-4.1) g/dL Albumin/Globulin Ratio (1.0-2.8) Lipase (23-300) U/L Urine RBC (0-5/HPF) Urine WBC (0-5/HPF) Ur Squamous Epith Cells (0-5/HPF) Urine Bacteria (None) Ur Culture Indicated? Vol Urine Centrifuged Point of care testing: Urine Dip Bedside Urine Glucose Negative Bedside Urine Bilirubin - Negative Bedside Urine Ketone - Negative Urine Specific [place] 1.010 Bedside Urine Occult Blood - Negative Bedside Urine pH 7.5 Bedside Urine Protein - Negative Bedside Urine Urobilinogen - Negative Bedside Urine Nitrite - Negative Bedside Urine Leukocytes + [address] scan - abdomen/pelvis: Radiologist's Impression: PROCEDURE: CT ABDOMEN PELVIS W CON INDICATIONS: painful ventral hernia TECHNIQUE: After the administration of intravenous contrast, axial sections acquired from the lung bases to the pubic symphysis. Coronal and sagittal reformats were performed. For radiation dose reduction, the following was used: automated exposure control, adjustment of mA and/or kV according to patient size. COMPARISON: [facility], CT, CT ABDOMEN PELVIS W CON, 08/19/2021, 15:41. FINDINGS: Image quality: Diagnostic. Lower Chest: No significant findings. ABDOMEN: Anterior abdominal wall supraumbilical hernia is again noted with approximately 1.0 cm neck and in total measuring up to approximately 3.6 cm cc by 3.2 cm transverse by 1.8 cm AP maximal dimensions. Relatively unchanged in size however there is increased mild surrounding edema and early findings of compromise vascular supply or incarceration or other inflammatory process could give this appearance. Follow-up is needed if no intervention performed. No focal fluid collection no free gas. Diffuse heterogeneous attenuation of the liver some of which commonly artifact from timing of the contrast bolus however passive congestion of the liver, elevated right heart pressures, hepatic steatosis, infiltrative process or early findings of cirrhotic change could have a similar appearance and follow-up is needed. Status post cholecystectomy with associated mild intrahepatic and extrahepatic biliary ductal dilatation common bile duct measures up to 1 cm. Mild to moderate pattern of constipation and mild ileus/bowel stasis. Nonspecific wall thickening distal esophagus into the stomach commonly artifact from partial nondistention although esophagitis, gastritis or other process not excluded. Mild calcifications of the aorta and iliac vessels unchanged. Moderate degenerative changes of the thoracic spine with dextroscoliosis unchanged. Urinary bladder is mildly distended. Pancreas: No ductal dilation. Spleen: Size is within normal limits. Adrenal Glands: No adrenal nodules. Kidneys and Ureters: No hydronephrosis. No solid mass. No complex renal cystic lesion which requires follow up. Abdominal Nodes: No retroperitoneal or mesenteric adenopathy by size criteria. Vessels: Aorta and inferior vena cava are normal in size. PELVIS: Pelvic Organs: Unremarkable. Pelvic Nodes: No enlarged lymph nodes. Miscellaneous: No inguinal hernias are seen. IMPRESSION: Anterior abdominal wall hernia as discussed above with new surrounding edema and edema in the rivera of the hernia may represent inflammatory changes or early findings of vascular compromise or incarcerated hernia. New diffuse heterogeneous attenuation of the liver as discussed above. Other findings as above. Dictated by: Griffin Sanders M.D. on 01/06/2025 at 16:14 Approved by: Griffin Sanders M.D. on 01/06/2025 at 16:24 ECG Data Interpretation: ECG reveals a rate of 52 beats per minute, regular rhythm, no ST segment elevations. No prior EKGs for comparison. [facility] Narrative Medical decision making narrative: 69-year-old female with a past medical history of hypertension, diabetes, TATI, depression, ventral hernia, hepatic steatosis, colonic epiploic appendagitis who presents to the emergency department for abdominal pain and ?massive lump? just above her belly button since this morning. Differential diagnosis includes but is not limited to ventral abdominal hernia, incarcerated hernia, strangulated hernia, bowel obstruction, UTI, constipation, colitis, etc. On exam patient is in mild distress secondary to abdominal pain. She is nontoxic appearing, vital signs within normal limits except for mildly elevated blood pressure. While the patient is lying flat, I am not able to feel any obvious hernia however she does have significant tenderness with even mild palpation. We will proceed with UA, CT with IV contrast, CBC, CMP, lipase, lactate. We will treat with morphine Zofran and fluids. 1427: Informed by nursing staff pt now experiencing right sided substernal chest pain. EKG, XR, Trop ordered. Examined patient at bedside and she describes right-sided epigastric pain, states that she is experienced this pain at home before at night and it typically goes away by walking around and having a bowel movement. Protonix ordered as well. 1630: CT reveals anterior abdominal wall hernia with new surrounding edema and edema in the rivera of the hernia may represent inflammatory changes or early findings of vascular compromise or incarcerated hernia. There is also new diffuse heterogeneous attenuation of the liver. Will consult general surgery due to inflamed hernia. Labs reveal normal WBC count 8.1, hemoglobin 13.9 hematocrit 41.5. Normal platelets 237. Normal sodium 138 potassium 3.5. Chloride is slightly low at 96, CO2 elevated at 34, BUN elevated at 34 with a normal creatinine 0.94. Glucose 112. Lactate 2.1 repeat 0.8. Calcium is elevated 11.1. AST and ALT are elevated at 60 103. Troponin is negative x 2. 1730: Still awaiting surgery call-back. Patient states her pain is improved significantly and she got up to go to the bathroom twice without issue. Dr. Sullivan came down to the ER and evaluated the patient at bedside. He reviewed her imaging and imaging results. At this time patient is pain-free, he is able to palpate the hernia defect but the hernia is reduced at this time. He recommends outpatient follow up with General surgery for elective hernia repair but no admission or emergent surgery is needed. Patient feels well, abdomen soft and nontender on my subsequent examinations. I applied an abdominal binder to her and she had great relief with this. Extensively discussed all of her workup today including multiple chronic findings on CT scan. She was provided with her own printed copy. Discussed the importance of her following up with her PCP and general surgery for further management of the hernia however we also discussed managing her constipation, having further imaging of her liver and symptoms of possible acid reflux. Patient and her verbalized understanding of all information and are happy with the plan, all questions answered, she is stable for discharge home. Discharge Plan Departure Patient Disposition: Home Clinical Impression: Supraumbilical hernia, Esophagitis Constipation Qualifiers: Constipation type: unspecified constipation type Qualified Code(s): K59.00 - Constipation, unspecified Instructions: DI for Abdominal Pain-Adult, DI for Constipation, DI for Ventral Hernia Activity Restrictions/Additional Instructions: Dear Ms. Clark, Thank you for coming to the emergency department. Today you were evaluated for abdominal pain and hernia pain. Our surgeon, Dr. Sullivan, came down to see you. I would like you to follow [facility] for further management of this hernia however at this time the hernia has reduced and does not need emergent surgery. Please rest, hydrate, use MiraLax to soften bowel movements, and use ibuprofen and Tylenol for pain. Please return to the emergency department immediately if you develop any new or worsening pain, hernia that will not go back in, or any other concerns. Please use the abdominal binder for comfort especially for going to be doing any moving around or exercise. Please take Ibuprofen (Motrin/Advil) or Acetaminophen (Tylenol) for pain. These are available over the counter. You may take Ibuprofen 600 mg every 8 hours with food for pain. You may also take Acetaminophen 650 mg every 4-6 hours for pain. Do not exceed 3000 mg of Tylenol a day as this can cause liver damage. Do not drink alcohol with either of these medications. Please follow up with your primary care doctor within the next 2-3 days for ER follow-up. (If you do not have a PCP you can call [phone]. ?to schedule an appointment with an [facility] Primary Care Provider) IF YOU DEVELOP ANY NEW OR WORSENING SYMPTOMS, RETURN TO THE ER! Please read the attached instructions, they highlight more specific treatments and interventions for you at home. Thank you for letting me participate in your care, Jill Marrero PA-C Prescriptions: No Action Sutab 1.479-0.188- 0.225 gram tablet See Rx Instructions PO PER PKG DIR Qty: 24 0RF Rx Instructions: Take as directed by Physician metformin 500 mg tablet 1,000 mg PO BID Patient Comments: TK 2 TS PO QAM AND 2 TS PO QPM venlafaxine 150 mg capsule,extended release 24hr 150 mg PO QPM Patient Comments: TK 1 C PO QD triamterene-hydrochlorothiazid 37.5-25 mg capsule 2 cap PO DAILY Patient Comments: TK 2 CS PO QD levothyroxine 100 mcg tablet 100 mcg PO QAM citalopram 20 mg tablet 40 mg PO QPM Patient Comments: TK 2 TS PO QD amlodipine 10 mg tablet 10 mg PO DAILY metoprolol tartrate 50 mg tablet 50 mg PO BID Patient Comments: TK 1 T PO BID FOR BLOOD PRESSURE omeprazole 20 mg capsule,delayed release(DR/EC) 20 mg PO QPM Patient Comments: TK 1 C PO QD 30 MIN B FIRST MEAL OF THE DAY FOR STOMACH OR ACID SUPPRESSION multivitamin Tablet 1 tab PO QPM (DME) [employer] Dreamstation BIPAP Qty: 1 Dose Instruction: As directed Patient Comments: Pressure: IPAP 20 EPAP 8 DME: [facility] Rx Instructions: As directed aspirin 81 mg tablet,delayed release (DR/EC) 81 mg PO DAILY atorvastatin 40 mg tablet 40 mg PO DAILY glipizide 10 mg tablet 10 mg PO DAILY Referrals: [facility] [Provider Group] Referral Note: Dean Billingsley MD [Primary Care Provider, Family Practice] Stand Alone Forms: Patient Portal/API
--- NOTE | 2025-01-06 13:28 | DI.CT.S_ITS ---
PROCEDURE: CT ABDOMEN PELVIS W CON INDICATIONS: painful ventral hernia TECHNIQUE: After the administration of intravenous contrast, axial sections acquired from the lung bases to the pubic symphysis. Coronal and sagittal reformats were performed. For radiation dose reduction, the following was used: automated exposure control, adjustment of mA and/or kV according to patient size. COMPARISON: [facility], CT, CT ABDOMEN PELVIS W CON, 08/19/2021, 15:41. FINDINGS: Image quality: Diagnostic. Lower Chest: No significant findings. ABDOMEN: Anterior abdominal wall supraumbilical hernia is again noted with approximately 1.0 cm neck and in total measuring up to approximately 3.6 cm cc by 3.2 cm transverse by 1.8 cm AP maximal dimensions. Relatively unchanged in size however there is increased mild surrounding edema and early findings of compromise vascular supply or incarceration or other inflammatory process could give this appearance. Follow-up is needed if no intervention performed. No focal fluid collection no free gas. Diffuse heterogeneous attenuation of the liver some of which commonly artifact from timing of the contrast bolus however passive congestion of the liver, elevated right heart pressures, hepatic steatosis, infiltrative process or early findings of cirrhotic change could have a similar appearance and follow-up is needed. Status post cholecystectomy with associated mild intrahepatic and extrahepatic biliary ductal dilatation common bile duct measures up to 1 cm. Mild to moderate pattern of constipation and mild ileus/bowel stasis. Nonspecific wall thickening distal esophagus into the stomach commonly artifact from partial nondistention although esophagitis, gastritis or other process not excluded. Mild calcifications of the aorta and iliac vessels unchanged. Moderate degenerative changes of the thoracic spine with dextroscoliosis unchanged. Urinary bladder is mildly distended. Pancreas: No ductal dilation. Spleen: Size is within normal limits. Adrenal Glands: No adrenal nodules. Kidneys and Ureters: No hydronephrosis. No solid mass. No complex renal cystic lesion which requires follow up. Abdominal Nodes: No retroperitoneal or mesenteric adenopathy by size criteria. Vessels: Aorta and inferior vena cava are normal in size. PELVIS: Pelvic Organs: Unremarkable. Pelvic Nodes: No enlarged lymph nodes. Miscellaneous: No inguinal hernias are seen. IMPRESSION: Anterior abdominal wall hernia as discussed above with new surrounding edema and edema in the rivera of the hernia may represent inflammatory changes or early findings of vascular compromise or incarcerated hernia. New diffuse heterogeneous attenuation of the liver as discussed above. Other findings as above. Dictated by: Griffin Sanders M.D. on 01/06/2025 at 16:14 Approved by: Griffin Sanders M.D. on 01/06/2025 at 16:24
[2025-01-06] MEDS: MORPHINE 4 MG/ML INJ IV (13:42)
[2025-01-06] MEDS: SODIUM CHLORIDE 0.9% 1,000 ML 1000 ML IV (13:43)
[2025-01-06] MEDS: ONDANSETRON 4 MG/2 ML INJ IV (13:43)
[2025-01-06 13:46] LABS: Add Manual Diff / Slide Review NO; Hematocrit 41.5 % (36-46); Hemoglobin 13.9 g/dL (12.0-16.0); Lymphocytes Absolute Auto 2200 /uL (1100-4500); Mean Corpuscular HGB Conc 33.4 % (30-36); Mean Corpuscular Hemoglobin 29.2 PG (26-34); Mean Corpuscular Volume 87.4 fL (80-100); Platelet Count 237 X10^3/uL (150-400)
[2025-01-06 13:58] LABS: Alanine Aminotransferase 103 IU/L (<35); Albumin 4.8 g/dL (3.5-5.0); Albumin Globulin Ratio 1.5 (1.0-2.8); Alkaline Phosphatase 119 U/L (38-126); Blood Urea Nitrogen 34 mg/dL (7-17); Calcium 11.1 mg/dL (8.4-10.2); Carbon Dioxide 34 mmol/L (22-32); Chloride 96 mmol/L (98-107); Estimated Glomerular Filt Rate > 60 mL/min (>60); Globulin 3.2 g/dL (1.7-4.1); Glucose 112 mg/dL (70-99); HEMOLYSIS < 15 (0-50); Lactate (Lactic Acid) 2.1 mmol/L (0.7-2.1); Lipase 207 U/L (23-300); Potassium 3.5 mmol/L (3.4-5.1); Sodium 138 mmol/L (137-145); Total Protein 8.0 g/dL (6.3-8.2)
[2025-01-06 14:04] LABS: Culture Indicated Urine Specimen Cultured
--- NOTE | 2025-01-06 14:26 | EKG_ITS ---
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
--- NOTE | 2025-01-06 14:26 | DI.RAD.S_ITS ---
PROCEDURE: XR CHEST 1V INDICATIONS: chest pain; hernia TECHNIQUE: One view of the chest was acquired. COMPARISON: None. FINDINGS: Mildly enlarged cardiopericardial silhouette, mildly prominent pulmonary vessels, mild bibasilar subsegmental atelectasis commonly artifact from expiratory result and AP view. Degenerative changes of the thoracic spine with mild levoscoliosis. Sclerotic density right humeral head commonly enchondroma although remote bone infarct or other sclerotic lesion not excluded. No pneumothorax, no pleural effusion, no lobar consolidation. IMPRESSION: Subsegmental atelectasis and expiratory result as discussed above. If symptoms persist or worsen, or there is high clinical suspicion of thoracic abnormality, CT chest could be performed. Dictated by: Griffin Sanders M.D. on 01/06/2025 at 16:28 Approved by: Griffin Sanders M.D. on 01/06/2025 at 16:31
--- NOTE | 2025-01-06 14:28 | PC.NURSE ---
pt complains of sternal Chest pain. provider aware. EKG ordered
[2025-01-06 14:41] VITALS: BP 164/71; PULSE 47; RESP 14; O2SAT 97
[2025-01-06 14:45] LABS: Creatine Kinase 40 U/L (30-135)
[2025-01-06] MEDS: PANTOPRAZOLE 40 MG VIAL IV (14:45)
[2025-01-06 14:57] LABS: Troponin I < 0.012 ng/mL (0.01-0.034)
[2025-01-06 15:19] LABS: Reflexed Lactate in 2 Hours Y
[2025-01-06 15:58] LABS: Lactate 2HR (Lactic Acid Rflx) 0.8 mmol/L (0.7-2.1)
[2025-01-06 16:39] LABS: Troponin I < 0.012 ng/mL (0.01-0.034)
[2025-01-06 18:18] VITALS: BP 140/63; PULSE 51; RESP 20; O2SAT 97
--- NOTE | 2025-01-06 18:36 | PM.CN.IH.1 ---
History of Present Illness Consult details Chief complaint: possible hernia Narrative: the patient is a 69 year old female with a known ventral hernia that is usually is reducible. this morning after waking up and urinating, patient noted the hernia was stuck out and non reducible. she was complaining of pain. work up included a CT scan which revealed a ventral hernia with umberto surrounding edema. By the time, I arrived her pain had completely resoved. Meds Home Medications and Allergies Home Medications ?Medication ?Instructions ?Recorded ?Confirmed ?Type amlodipine 10 mg tablet 10 mg PO DAILY 09/10/18 08/22/22 History citalopram 20 mg tablet 40 mg PO QPM 09/10/18 08/22/22 History levothyroxine 100 mcg tablet 100 mcg PO QAM 09/10/18 08/22/22 History metformin 500 mg tablet 1,000 mg PO BID 09/10/18 08/22/22 History metoprolol tartrate 50 mg tablet 50 mg PO BID 09/10/18 08/22/22 History multivitamin 1 tab PO QPM 09/10/18 05/20/22 History omeprazole 20 mg capsule,delayed 20 mg PO QPM 09/10/18 08/22/22 History release triamterene 37.5 2 cap PO DAILY 09/10/18 05/20/22 History mg-hydrochlorothiazide 25 mg capsule venlafaxine 150 mg 150 mg PO QPM 09/10/18 08/22/22 History capsule,extended release 24 hr Respironics Dreamstation BIPAP #1 ea 09/14/18 05/20/22 History aspirin 81 mg tablet,delayed 81 mg PO DAILY 10/11/20 08/22/22 History release atorvastatin 40 mg tablet 40 mg PO DAILY 10/11/20 08/22/22 History glipizide 10 mg tablet 10 mg PO DAILY 05/20/22 08/22/22 History sodium sul 1.479 gram-potas ch See Rx Instructions PO PER PKG DIR 08/11/22 Rx 0.188 gram-magnes sul 0.225 gram #24 tabs tablet (Sutab) Allergies Allergy/AdvReac Type Severity Reaction Status Date / Time Sulfa (Sulfonamide Allergy Severe Vomiting, Verified 01/06/25 13:00 Antibiotics) (SULFA Rash, (SULFONAMIDE ANTIBIOTICS)) Pruritus, Fever povidone-iodine (From AdvReac Mild Contact Verified 01/06/25 13:00 Betadine) allergy, Swelling soap (From Betadine) AdvReac Mild Contact Verified 01/06/25 13:00 allergy, Swelling Review of Systems Review of Systems Narrative: all systems negative except for that outlined in the HPI Exam Vital Signs (past 8 hours): - 01/06/25 12:55 01/06/25 14:41 01/06/25 18:18 Temperature 97.5 F L Pulse Rate 58 L 47 L 51 L Respiratory Rate 18 14 20 Blood Pressure 167/69 H 164/71 H 140/63 Pulse Oximetry 97 97 97 Oxygen Delivery Method Room Air Room Air Room Air Oxygen Delivery Method Room Air GI Other: Abdomen is soft, non-tender with normoactive bowel sounds. I can feel the edges of the fascial defect which measures 2-3 cms, with no hernial contents. there is no surrounding erythema or induration Objective Labs 01/06/25 13:29 01/06/25 13:29 Labs: Laboratory Results - last 24 hr 01/06/25 01/06/25 01/06/25 13:21 13:29 15:41 WBC 8.1 RBC 4.75 Hgb 13.9 Hct 41.5 MCV 87.4 MCH 29.2 MCHC 33.4 RDW 14.1 Plt Count 237 Neut % (Auto) 59.9 Lymph % (Auto) 27.0 Maury % (Auto) 9.2 Eos % (Auto) 2.7 Baso % (Auto) 1.2 Neut # (Auto) 4900 Lymph # (Auto) 2200 Maury # (Auto) 700 Eos # (Auto) 200 Baso # (Auto) 100 Sodium 138 Potassium 3.5 Chloride 96 L Carbon Dioxide 34 H BUN 34 H Creatinine 0.94 Estimated GFR > 60 BUN/Creatinine Ratio 36.2 H Glucose 112 H Lactate 2.1 0.8 Calcium 11.1 H Total Bilirubin 0.6 AST 68 H ALT 103 H Alkaline Phosphatase 119 Total Creatine Kinase 40 Troponin I < 0.012 Total Protein 8.0 Albumin 4.8 Globulin 3.2 Albumin/Globulin Ratio 1.5 Lipase 207 Urine RBC 0-1/hpf Urine WBC 1-5/hpf Ur Squamous Epith Cells 1-5 /hpf Urine Bacteria Few (2-10) H Ur Culture Indicated? Specimen cultured Vol Urine Centrifuged 10ml (spun) 01/06/25 16:11 WBC RBC Hgb Hct MCV MCH MCHC RDW Plt Count Neut % (Auto) Lymph % (Auto) Maury % (Auto) Eos % (Auto) Baso % (Auto) Neut # (Auto) Lymph # (Auto) Maury # (Auto) Eos # (Auto) Baso # (Auto) Sodium Potassium Chloride Carbon Dioxide BUN Creatinine Estimated GFR BUN/Creatinine Ratio Glucose Lactate Calcium Total Bilirubin AST ALT Alkaline Phosphatase Total Creatine Kinase Troponin I < 0.012 Total Protein Albumin Globulin Albumin/Globulin Ratio Lipase Urine RBC Urine WBC Ur Squamous Epith Cells Urine Bacteria Ur Culture Indicated? 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 there are no physical findings concerning for strangulation. I believe the patient is safe to go home. An outpatient surgical consult is a consideration for potential repair. Time-Based Coding :: [TOTAL MINUTES] spent with patient and on the chart (including review of chart, obtaining history, exam, reviewing outside data, placing orders, documenting exam and treatment plan, and counseling patient) on [DATE]. PROFEE Charge Codes Inpatient or Observation consultation: [id number]
[2025-01-06 19:18] VITALS: BP 134/62; PULSE 49; RESP 14; O2SAT 97
== END 2025-01-06 19:19 | disposition home or self-care (01) ==
PROVIDERS: Emergency Provider Physician Assistant; PCP Family Medicine
DX: K43.9 Ventral hernia without obstruction or gangrene (principal); K20.90 Esophagitis, unspecified without bleeding; K59.00 Constipation, unspecified
CPT/HCPCS: 36415; 71045; 74177; 80053; 81003; 81015; 82550; 83605; 83690; 84484; 85025; 87086; 93005; 93010; 96361; 96374; 96375; 99284; J2270; J2405; J2470; Q9967

== ENCOUNTER 2025-06-27 06:00 | Day surgery (SDC) | payer MEDICARE, OTHER, SELFPAY ==
[2025-05-05 10:09] VITALS: BMI 29.2
[2025-06-27] VITALS (7 sets, daily range): BP systolic 111–155; BP diastolic 58–72; PULSE 54–67; RESP 12–20; TEMP 36.2–37; O2SAT 94–99
--- NOTE | 2025-06-27 05:57 | PM.HP.IH.1 ---
History of Present Illness History of Present Illness Date Patient Seen: 06/27/25 Chief complaint: Hernia Repair Narrative: Patient presents for ventral hernia repair today. 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 Mood disorder Morbid obesity with body mass index of 40.0-49.9 Obstructive sleep apnea of adult Peripheral neuropathy Snoring Type 2 diabetes mellitus Surgical History Hx of cholecystectomy Social History marital status: details: to Bill, lives in [place] household members: spouse lives independently: Yes caregiver/support person: No housing: house occupational status: employed Smoking Status: Never smoker alcohol intake: never substance use type: does not use Meds Home Medications and Allergies Home Medications ?Medication ?Instructions ?Recorded ?Confirmed ?Type citalopram 20 mg tablet 40 mg PO QPM 09/10/18 04/19/25 History levothyroxine 100 mcg tablet 100 mcg PO QAM 09/10/18 04/19/25 History metoprolol tartrate 50 mg tablet 50 mg PO BID 09/10/18 04/19/25 History omeprazole 20 mg capsule,delayed 20 mg PO QPM 09/10/18 04/19/25 History release triamterene 37.5 2 cap PO DAILY 09/10/18 04/19/25 History mg-hydrochlorothiazide 25 mg capsule venlafaxine 150 mg 150 mg PO QPM 09/10/18 04/19/25 History capsule,extended release 24 hr Respironics Dreamstation BIPAP #1 ea 09/14/18 04/19/25 History aspirin 81 mg tablet,delayed 81 mg PO DAILY 10/11/20 04/19/25 History release atorvastatin 40 mg tablet 40 mg PO DAILY 10/11/20 04/19/25 History amlodipine 5 mg tablet 5 mg PO DAILY 04/19/25 04/19/25 History blood-glucose sensor (FreeStyle 04/19/25 04/19/25 History Nilson 2 Plus Sensor device) dulaglutide 0.75 mg/0.5 mL 0.75 mg SUBCUT QWEEK 04/19/25 04/19/25 History subcutaneous pen injector (Trulicity) metformin 500 mg tablet,extended 500 mg PO QAM 04/19/25 04/19/25 History release 24 hr Allergies Allergy/AdvReac Type Severity Reaction Status Date / Time Sulfa (Sulfonamide Allergy Severe Vomiting, Verified 04/19/25 10:39 Antibiotics) (SULFA Rash, (SULFONAMIDE ANTIBIOTICS)) Pruritus, Fever povidone-iodine (From AdvReac Mild Contact Verified 04/19/25 10:39 Betadine) allergy, Swelling soap (From Betadine) AdvReac Mild Contact Verified 04/19/25 10:39 allergy, Swelling Exam Narrative Exam Narrative: Const General: healthy appearing, comfortable and no acute distress Orientation: alert and oriented x3 HENMT Ears: hearing grossly normal bilaterally Eyes Visual Woo: normal visual woo by confrontation Conjunctivae: conjunctivae normal Sclera: sclerae normal EOM: EOM intact bilaterally Resp Effort & Inspection: normal respiratory effort and able to speak in complete sentences Cardio Rate: regular rate GI Palpation: soft, palpable ventral hernia above umbilicus, best appreciated in standing position, with coughing, reducible, painful to palpation. Clinically contains greater omental fat. Extrem General: no pedal edema and no calf tenderness Assessment & Plan Assessment and plan (1) Ventral hernia without obstruction or gangrene: Status: Acute Plan Plan ventral hernia repair with possible mesh. The risks, benefits and options regarding the procedure were explained to the patient in detail. Risk discussion included but not limited to: bleeding, infection, recurrence. The patient was encouraged to ask questions and they were answered to their satisfaction. The patient understands and is agreeable to proceed. Time-Based Coding :: [TOTAL MINUTES] spent with patient and on the chart (including review of chart, obtaining history, exam, reviewing outside data, placing orders, documenting exam and treatment plan, and counseling patient) on [DATE]. PROFEE Community Relations Manager Document charge(s): Yes Charge Codes Initial inpatient/observation care: [id number]
[2025-06-27 07:21] LABS: Blood Urea Nitrogen 20 mg/dL (7-17); Calcium 10.5 mg/dL (8.4-10.2); Carbon Dioxide 29 mmol/L (22-32); Chloride 97 mmol/L (98-107); Estimated Glomerular Filt Rate > 60 mL/min (>60); Glucose 132 mg/dL (70-99); HEMOLYSIS 38 (0-50); Potassium 3.4 mmol/L (3.4-5.1); Sodium 134 mmol/L (137-145)
[2025-06-27] MEDS: LACTATED RINGERS 1,000 ML 42 ML IV (07:25)
[2025-06-27] MEDS: ACETAMINOPHEN 325 MG TABLET 975 MG PO (07:26)
--- NOTE | 2025-06-27 08:07 | SUR.OPER ---
Supine on padded OR bed, head on pillow, arms secured on padded arm boards at <90 degrees abduction, legs uncrossed, safety belt at thigh, tape over blanket over lower legs.
--- NOTE | 2025-06-27 08:35 | P.OP_ITS ---
Operative Date/Time/Diagnoses Date of procedure: 06/27/25 Time of procedure: 08:35 Pre-op diagnosis: Ventral hernia Post-op diagnosis: same Procedure & Clinicians Procedure: Ventral hernia repair with mesh Same procedure(s) as scheduled: Yes Indications: 70yo F with symptomatic ventral hernia, reducible Surgeon: Bruno Yee Assisted?: Yes Animal Hospital Clerk: Alexx Bustamante Anesthesia Type: General Operative Notes Findings: 4cm fascial defect in midline Closure Type: primary Specimen(s): none sent Prosthetic devices, grafts, tissues, transplants, or devices: mesh Applied: other Estimated Blood Loss (mL): 5 Blood products transfused: none Procedure in detail: After informed consent and satisfactory general anesthesia, the abdomen was prepped and draped in the usual sterile manner. Surgical time-out was performed with all team members in agreement. The patient received appropriate preoperative antibiotics and DVT prophylaxis. We marked the hernia defect in the preoperative holding area. A transverse incision was made beneath the umbilicus with a 15 blade. This was continued through the skin and subcutaneous tissues. Hemostasis was achieved with cautery. Blunt finger dissection was used to mobilize around the umbilicus. The umbilicus was mobilized off of the fascia. The hernia sac was noted in the supraumbilical midline. This potent ially was an incisional hernia from a prior trocar site. We cleaned the subcutaneous tissue off the fascial borders. There were no intraperitoneal contents in the hernia sac. The fascial defect measured 4 cm. We selected an 8 cm [place] strap mesh and placed this as an intraperitoneal onlay mesh. The fascia was closed incorporating the strap using 0 Ethibond interrupted pop-off suture. There were no appreciable fascial defects after the closure. The umbilical skin was reapproximated to the fascia using 3-0 Vicryl interrupted x2. The skin incision was closed using 4-0 Monocryl in a subcuticular manner. Dermabond glue was applied as a final dressing. The estimated blood loss was minimal. The instrument sponge and needle counts were all correct x2. The patient tolerated the procedure well and was transported to the recovery area in stable condition. Complications: none Post-operative Condition: stable Disposition: PACU Plan for aftercare: PACU then home
[2025-06-27] MEDS: ONDANSETRON 4 MG/2 ML INJ IV (09:13)
--- NOTE | 2025-06-27 09:24 | SUR.PHASEII ---
Patients blood sugar from her monitor is 124.
== END 2025-06-27 10:41 | disposition home or self-care (01) ==
PROVIDERS: Nurse Anesthetist, Certified Registered; PCP Family Medicine; Referring Provider Surgery; Visit Provider Surgery
PROC: (CPT 49593; principal; 2025-06-27 07:45)
DX: K43.9 Ventral hernia without obstruction or gangrene (principal); E11.9 Type 2 diabetes mellitus without complications; I10 Essential (primary) hypertension; E78.5 Hyperlipidemia, unspecified; E66.01 Morbid (severe) obesity due to excess calories; K21.9 Gastro-esophageal reflux disease without esophagitis; F41.9 Anxiety disorder, unspecified; F32.A Depression, unspecified; Z79.84 Long term (current) use of oral hypoglycemic drugs; Z79.85 Long-term (current) use of injectable non-insulin antidiabetic drugs
CPT/HCPCS: 49593; 36415; 80048; 82962; C1781; J0689; J1100; J2405; J2704; J3010; J3490; J7120